=== PATIENT | female | born 1935 | race Caucasian/White ===

== ENCOUNTER 2019-05-15 15:54 | Observation (INO) ==
[2019-05-15] MEDS: 0.9 % Sodium Chloride 1,000 ML IVC SCH ×2 (16:39→18:00)
[2019-05-15 16:43] LABS: Bilirubin,Urine Negative (Negative); Blood,Urine Negative (Negative); Clarity,Urine Clear (Clear); Color,Urine Yellow (Yellow); Glucose,Urine (UA) >=1000 mg/dL (Normal); Ketones,Urine Negative (Negative); Leukocyte Esterase,Urine Negative (Negative); Nitrite,Urine Negative (Negative); Protein,Urine Negative (Neg-Trace); Specific Gravity,Urine 1.025 (1.010-1.025); Urobilinogen,Urine Normal (Normal)
[2019-05-15 16:56] LABS: Basophils # 0.1 K/mcL (0.0-0.2); Basophils % 0.5 %; Eosinophils # 0.2 K/mcL (0.0-0.6); Eosinophils % 2.5 %; Hematocrit 46.9 % (35.3-44.9); Hemoglobin 15.2 g/dL (11.5-15.4); Immature Granulocytes % 0.4 % (0-4); Lymphocytes # 1.7 K/mcL (0.6-4.6); Lymphocytes % 17.4 %; Mean Corpuscular HGB Conc 32.4 g/dL (31.6-35.5); Mean Corpuscular Hemoglobin 30.5 pg (28.0-33.3); Mean Corpuscular Volume 94.2 fL (83.0-100.0); Mean Platelet Volume 12.3 fL (9.4-12.4); Monocytes % 10.1 %; Neutrophils # 6.5 K/mcL (1.6-8.9); Platelet Count 244 K/mcL (140-400); Red Blood Count 4.98 M/mcL (3.82-4.97); Red Cell Distribution Width 12.2 % (11.5-14.5); Segmented Neutrophils % 69.1 %; White Blood Count 9.5 K/mcL (4.3-11.1)
[2019-05-15 17:00] LABS: VBG HCO3 23 mEq/L (21-27); VBG PCO2 42 mmHg (41-51); VBG PH 7.35 pH Units (7.32-7.42); VBG PO2 57 mmHg (25-50)
--- NOTE | 2019-05-15 17:05 | Emergency Department Note ---
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) Disposition: Admitted As Inpatient Condition: Fair Referrals: Irwin Cadet Jr, MD [Primary Care Provider] - Forms: ED Satisfaction Letter Time of Disposition: 18:24 General Adult HPI - General Chief complaint: ED Altered Mental Status Stated complaint: AMS, HI glucose Time Seen by Provider: 05/15/19 16:00 Source: patient Limitations: no limitations - History of Present Illness Pain Scale: 5 - Related Data Previous Rx's Medication Instructions Recorded Adolfo/Poly/HC *EAR* SUSP 2 drop RIGHT EAR QID 7 Days 10/31/16 [Cortisporin *EAR* SUSP] drops.susp Allergies Allergy/AdvReac Type Severity Reaction Status Date / Time azithromycin Allergy Rash Verified 10/31/16 14:19 Past Medical History - Past Medical History Medical history: Reports: arthritis, diabetes, hypertension Psychiatric history: Reports: no psych history - Social History Smoking Status: Never smoker Smokeless Tobacco Status: No Alcohol use: Reports: none Drug use: Reports: none Physical Exam - General Limitations: no limitations General appearance: alert Course Vital Signs Temperature 98.0 F 05/15/19 15:55 Pulse Rate 77 05/15/19 15:55 Respiratory Rate 16 05/15/19 15:55 Blood Pressure 140/74 05/15/19 15:55 O2 Sat by Pulse Oximetry 95 05/15/19 15:55 Temperature 98.0 F 05/15/19 16:12 Pulse Rate 76 05/15/19 17:20 Respiratory Rate 14 05/15/19 17:20 Blood Pressure 142/78 05/15/19 17:20 O2 Sat by Pulse Oximetry 94 05/15/19 17:20 Oxygen Delivery Oxygen Delivery Room Air Medical Decision Making - Lab Data Result diagrams: 05/15/19 16:39 05/15/19 16:39 Lab Results 05/15/19 05/15/19 05/15/19 Range/Units 16:33 16:39 16:39 WBC 9.5 (4.3-11.1) K/mcL RBC 4.98 H (3.82-4.97) M/mcL Hgb 15.2 (11.5-15.4) g/dL Hct 46.9 H (35.3-44.9) % MCV 94.2 (83.0-100.0) fL MCH 30.5 (28.0-33.3) pg MCHC 32.4 (31.6-35.5) g/dL RDW 12.2 (11.5-14.5) % Plt Count 244 (140-400) K/mcL MPV 12.3 (9.4-12.4) fL Immature Gran % 0.4 (0-4) % Seg Neutrophils % 69.1 % Lymphocytes % 17.4 % Monocytes % 10.1 % Eosinophils % 2.5 % Basophils % 0.5 % Neutrophils # 6.5 (1.6-8.9) K/mcL Lymphocytes # 1.7 (0.6-4.6) K/mcL Monocytes # 1.0 (0.0-1.3) K/mcL Eosinophils # 0.2 (0.0-0.6) K/mcL Basophils # 0.1 (0.0-0.2) K/mcL VBG pH (7.32-7.42) pH Units VBG pCO2 (41-51) mmHg VBG pO2 (25-50) mmHg VBG HCO3 (21-27) mEq/L Sodium 119 L* (136-145) mEq/L Potassium 4.8 (3.5-5.1) mEq/L Chloride 87 L (98-107) mEq/L Carbon Dioxide 24 (23-29) mEq/L BUN 38 H (8-23) mg/dL Creatinine 1.85 H (0.60-1.20) mg/dL Est GFR ( Amer) 31 L (> 60) Est GFR (Non-Af Amer) 26 L (> 60) BUN/Creatinine Ratio 21 (6-26) Glucose 984 H* (70-105) mg/dL Calculated Osmolality 306 H (280-300) Lactic Acid (0.5-2.2) mmol/L Calcium 10.3 (8.6-10.3) mg/dL Phosphorus 3.4 (2.7-4.5) mg/dL Magnesium 2.0 (1.6-2.6) mg/dL Beta-Hydroxybutyric Acd (0.02-0.27) mmol/L Urine Color Yellow (Yellow) Urine Clarity Clear (Clear) Urine pH 6.0 (5.0-8.0) pH Units Ur Specific [place] 1.025 (1.010-1.025) Urine Protein Negative (Neg-Trace) mg/dL Urine Glucose (UA) >=1000 H (Normal) mg/dL Urine Ketones Negative (Negative) mg/dL Urine Blood Negative (Negative) Urine Nitrite Negative (Negative) Urine Bilirubin Negative (Negative) Urine Urobilinogen Normal (Normal) mg/dL Ur Leukocyte Esterase Negative (Negative) Ur Culture Indicated? NO (NO) 05/15/19 05/15/19 05/15/19 Range/Units 16:39 16:39 16:56 WBC (4.3-11.1) K/mcL RBC (3.82-4.97) M/mcL Hgb (11.5-15.4) g/dL Hct (35.3-44.9) % MCV (83.0-100.0) fL MCH (28.0-33.3) pg MCHC (31.6-35.5) g/dL RDW (11.5-14.5) % Plt Count (140-400) K/mcL MPV (9.4-12.4) fL Immature Gran % (0-4) % Seg Neutrophils % % Lymphocytes % % Monocytes % % Eosinophils % % Basophils % % Neutrophils # (1.6-8.9) K/mcL Lymphocytes # (0.6-4.6) K/mcL Monocytes # (0.0-1.3) K/mcL Eosinophils # (0.0-0.6) K/mcL Basophils # (0.0-0.2) K/mcL VBG pH 7.35 (7.32-7.42) pH Units VBG pCO2 42 (41-51) mmHg VBG pO2 57 H (25-50) mmHg VBG HCO3 23 (21-27) mEq/L Sodium (136-145) mEq/L Potassium (3.5-5.1) mEq/L Chloride (98-107) mEq/L Carbon Dioxide (23-29) mEq/L BUN (8-23) mg/dL Creatinine (0.60-1.20) mg/dL Est GFR ( Amer) (> 60) Est GFR (Non-Af Amer) (> 60) BUN/Creatinine Ratio (6-26) Glucose (70-105) mg/dL Calculated Osmolality (280-300) Lactic Acid 2.5 H (0.5-2.2) mmol/L Calcium (8.6-10.3) mg/dL Phosphorus (2.7-4.5) mg/dL Magnesium (1.6-2.6) mg/dL Beta-Hydroxybutyric Acd 0.23 (0.02-0.27) mmol/L Urine Color (Yellow) Urine Clarity (Clear) Urine pH (5.0-8.0) pH Units Ur Specific [place] (1.010-1.025) Urine Protein (Neg-Trace) mg/dL Urine Glucose (UA) (Normal) mg/dL Urine Ketones (Negative) mg/dL Urine Blood (Negative) Urine Nitrite (Negative) Urine Bilirubin (Negative) Urine Urobilinogen (Normal) mg/dL Ur Leukocyte Esterase (Negative) Ur Culture Indicated? (NO) Critical Care Time Critical Care Time: Yes Total Critical Care Time: 45 Attestation: Critical care performed: Time is exclusive of separately billable procedures. Time includes: direct patient care, patient reassessment, coordination of patient care, interpretation of data (laboratory data, radiology data, and respiratory data), review of patient's medical records, medical consultation and documentation of patient care. Procedures included in critical care time: Procedures excluded from critical care time: Attestation Statement - Attestation Attestation: I, Andrzej Bhandari DO, examined this patient [id number] and my medical decision-making was reviewed with Dr. Teresa Alarcon, Resident Physician. I agree with the documented findings, disposition and treatment plan as described except to the extent set forth below. I personally supervised and was present for the berg/critical portions of the procedures completed by the resident documented below. Please see my progress notes for details. 84-year-old female presents emergency room for evaluation of generalized malaise, increased thirst, increased urination, elevated glucose. 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 She denies any recent falls trauma or injury. She has not been ill. She has increased her fluid intake secondary to thirst but has not had any other acute intake and her food. She does not eat much at home. She also has been drinking a lot of juice. No other acute symptoms or issues. No recent fevers or chills. Head is atraumatic. Pupils are equal and reactive. Extracted muscles are intact. Oropharynx is patent. Trachea is midline. Lungs are clear. Heart is regular. Abdomen is soft. She has no point tenderness guarding rigidity or peritoneal symptoms. She was all 4 extremities without any difficulty. Family is comfortable this plan. EKG is reviewed by myself and documented resident physician's note. See detailed documentation the physical exam, medical intervention, medical decision-making and disposition in the resident physician's documentation. No critical care provider the patient's treatment course at this time. Workup for diabetic ketoacidosis as well as laterally derangements and CT imaging of the head and chest will be completed this time. Patient is otherwise stable. No immediate intervention is required at this time. 1800 Patient has what appears to be hyperosmolar hyperglycemic syndrome at this time. Fluid resuscitation will be started. She also is having symptomatic pseudohyponatremia secondary to the elevated glucose of greater than 900. Her corrected sodium at this time is greater than 1:30. Patient will be monitored closely as admission process is completed. Approximately 45 minutes of critical care pad the patient's treatment course at this time. [address] Chang reviewed the case at length. No other recommendations or concerns were noted this time. Patient will be admitted to the hospital for continuation of care and management. 45 minutes of critical care provider the patient's treatment course secondary to multidisciplinary intervention and management.
--- NOTE | 2019-05-15 17:30 | Emergency Department Note ---
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 Patient reports that normally she does not feel like "an old person "but she says she feels like that today. Patient was out in the heat on Monday for a graduation alliance party, and since that time she states that she has felt weak all over. Daughter at bedside states that she seems more confused and it seems like it is hard for her to get her words out. Patient is alert and oriented to person place and time as well as President. She denies any recent falls or trauma. 3 weeks ago she was taken off her full dose metformin, placed on a half dose, and started on Januvia. - Related Data Home Medications Medication Instructions Recorded Confirmed Unable To Obtain [Unable to Obtain] 05/15/19 05/15/19 Allergies Allergy/AdvReac Type Severity Reaction Status Date / Time azithromycin Allergy Rash Verified 10/31/16 14:19 Review of Systems: In addition to that documented in the HPI above, the additional ROS was obtained: Constitutional: Denies fevers or chills Eyes: Denies vision changes ENMT: Denies sore throat CV: Denies chest pain Resp: Reports SOB GI: Denies vomiting or diarrhea : Denies painful urination Reports polyuria, polydipsia MSK: Denies recent trauma or falls Skin: Denies new rashes Neuro: Denies new numbness or tingling Reports new weakness Endocrine: Denies unexpected weight loss Heme: Denies bleeding disorders Past Medical History - Past Medical History Attestation: Yes The following information was validated with the patient. Medical history: Reports: arthritis, diabetes, hypertension Psychiatric history: Reports: no psych history - Social History Smoking Status: Never smoker Smokeless Tobacco Status: No Alcohol use: Reports: none Drug use: Reports: none Physical Exam General: A&O x 3 - person, place, time. No acute distress. Well developed, well nourished. Head: atraumatic, normocephalic. ENT: No conjunctival injection, no scleral icterus. PERRLA. EOMI. Oropharynx n on- erythematous. mucous membranes moist. Neuro: No focal deficits, no speech deficit, no facial droop, mentating well. BUE/BLE Str 5/5. Rabia UE/LE sensation intact. CN II-XII intact. Cerebellar test ing with [id number] and [id number] intact. Pulm: Lungs CTAB A/P. No wheezes, rales, ronchi. Cardio: RRR no m/r/g. Chest not tender to palpation. Abd: Soft, non-distended. Normoactive bowel sounds. Non-tender to palpation. No guarding. Non rigid. Extremities: Radial pulses 2+ rabia, dorsalis pedis/posterior tibialis 2+ rabia. No LE edema. No cyanosis, clubbing. Skin: warm, dry, intact. No rashes. Psych: Appropriate mood and affect. Answers questions appropriately. Cooperative with exam. - General Limitations: no limitations General appearance: alert Course Vital Signs Temperature 98.0 F 05/15/19 15:55 Pulse Rate 77 05/15/19 15:55 Respiratory Rate 16 05/15/19 15:55 Blood Pressure 140/74 05/15/19 15:55 O2 Sat by Pulse Oximetry 95 05/15/19 15:55 Temperature 98.0 F 05/15/19 16:12 Pulse Rate 91 05/15/19 20:03 Respiratory Rate 16 05/15/19 20:03 Blood Pressure 128/68 05/15/19 20:03 O2 Sat by Pulse Oximetry 96 05/15/19 20:03 Oxygen Delivery Oxygen Delivery Room Air Altered Mental Status - MDM Narrative Medical decision making narrative: 84-year-old female that presents with concerns for weakness and elevated blood sugar. We will obtain basic laboratory evaluation to include CBC, BMP, LFTs, beta hydroxybutyrate, UA, chest x-ray, EKG. Initial glucose in her BMP was 984, corrected sodium was 133, initial potassium was 4.8. Patient will be started on fluids, 2 L have been ordered while she is in the emergency department, given patient's elevated glucose and potassium of 4.8 she will be started on an insulin drip. Patient will need to be admitted for further workup and stabilization. Patient was admitted to the hospitalist Dr. Chang who agreed to accept the patient to his service. Results of the workup including any imaging and/or labwork was shared with the patient at bedside. Patient was given an opportunity to ask questions at bedside and all of their concerns were addressed. Patient verbalized understanding and agreement with plan of care. Pt remained stable while in the department. - Medical Records Medical records reviewed: Yes I reviewed the patient's medical records. - Lab Data Lab results reviewed: Yes I reviewed the patient's lab results. Result diagrams: 05/15/19 16:39 05/15/19 19:48 Lab Results 05/15/19 05/15/19 05/15/19 Range/Units 16:10 16:10 16:33 WBC (4.3-11.1) K/mcL RBC (3.82-4.97) M/mcL Hgb (11.5-15.4) g/dL Hct (35.3-44.9) % MCV (83.0-100.0) fL MCH (28.0-33.3) pg MCHC (31.6-35.5) g/dL RDW (11.5-14.5) % Plt Count (140-400) K/mcL MPV (9.4-12.4) fL Immature Gran % (0-4) % Seg Neutrophils % % Lymphocytes % % Monocytes % % Eosinophils % % Basophils % % Neutrophils # (1.6-8.9) K/mcL Lymphocytes # (0.6-4.6) K/mcL Monocytes # (0.0-1.3) K/mcL Eosinophils # (0.0-0.6) K/mcL Basophils # (0.0-0.2) K/mcL VBG pH (7.32-7.42) pH Units VBG pCO2 (41-51) mmHg VBG pO2 (25-50) mmHg VBG HCO3 (21-27) mEq/L Sodium (136-145) mEq/L Potassium (3.5-5.1) mEq/L Chloride (98-107) mEq/L Carbon Dioxide (23-29) mEq/L BUN (8-23) mg/dL Creatinine (0.60-1.20) mg/dL Est GFR ( Amer) (> 60) Est GFR (Non-Af Amer) (> 60) BUN/Creatinine Ratio (6-26) Glucose (70-105) mg/dL POC Glucose > 600 H* > 600 H* (70-99) mg/dL Calculated Osmolality (280-300) Lactic Acid (0.5-2.2) mmol/L Calcium (8.6-10.3) mg/dL Phosphorus (2.7-4.5) mg/dL Magnesium (1.6-2.6) mg/dL Beta-Hydroxybutyric Acd (0.02-0.27) mmol/L Urine Color Yellow (Yellow) Urine Clarity Clear (Clear) Urine pH 6.0 (5.0-8.0) pH Units Ur Specific [place] 1.025 (1.010-1.025) Urine Protein Negative (Neg-Trace) mg/dL Urine Glucose (UA) >=1000 H (Normal) mg/dL Urine Ketones Negative (Negative) mg/dL Urine Blood Negative (Negative) Urine Nitrite Negative (Negative) Urine Bilirubin Negative (Negative) Urine Urobilinogen Normal (Normal) mg/dL Ur Leukocyte Esterase Negative (Negative) Ur Culture Indicated? NO (NO) 05/15/19 05/15/19 05/15/19 Range/Units 16:39 16:39 16:39 WBC 9.5 (4.3-11.1) K/mcL RBC 4.98 H (3.82-4.97) M/mcL Hgb 15.2 (11.5-15.4) g/dL Hct 46.9 H (35.3-44.9) % MCV 94.2 (83.0-100.0) fL MCH 30.5 (28.0-33.3) pg MCHC 32.4 (31.6-35.5) g/dL RDW 12.2 (11.5-14.5) % Plt Count 244 (140-400) K/mcL MPV 12.3 (9.4-12.4) fL Immature Gran % 0.4 (0-4) % Seg Neutrophils % 69.1 % Lymphocytes % 17.4 % Monocytes % 10.1 % Eosinophils % 2.5 % Basophils % 0.5 % Neutrophils # 6.5 (1.6-8.9) K/mcL Lymphocytes # 1.7 (0.6-4.6) K/mcL Monocytes # 1.0 (0.0-1.3) K/mcL Eosinophils # 0.2 (0.0-0.6) K/mcL Basophils # 0.1 (0.0-0.2) K/mcL VBG pH (7.32-7.42) pH Units VBG pCO2 (41-51) mmHg VBG pO2 (25-50) mmHg VBG HCO3 (21-27) mEq/L Sodium 119 L* (136-145) mEq/L Potassium 4.8 (3.5-5.1) mEq/L Chloride 87 L (98-107) mEq/L Carbon Dioxide 24 (23-29) mEq/L BUN 38 H (8-23) mg/dL Creatinine 1.85 H (0.60-1.20) mg/dL Est GFR ( Amer) 31 L (> 60) Est GFR (Non-Af Amer) 26 L (> 60) BUN/Creatinine Ratio 21 (6-26) Glucose 984 H* (70-105) mg/dL POC Glucose (70-99) mg/dL Calculated Osmolality 306 H (280-300) Lactic Acid (0.5-2.2) mmol/L Calcium 10.3 (8.6-10.3) mg/dL Phosphorus 3.4 (2.7-4.5) mg/dL Magnesium 2.0 (1.6-2.6) mg/dL Beta-Hydroxybutyric Acd 0.23 (0.02-0.27) mmol/L Urine Color (Yellow) Urine Clarity (Clear) Urine pH (5.0-8.0) pH Units Ur Specific [place] (1.010-1.025) Urine Protein (Neg-Trace) mg/dL Urine Glucose (UA) (Normal) mg/dL Urine Ketones (Negative) mg/dL Urine Blood (Negative) Urine Nitrite (Negative) Urine Bilirubin (Negative) Urine Urobilinogen (Normal) mg/dL Ur Leukocyte Esterase (Negative) Ur Culture Indicated? (NO) 05/15/19 05/15/19 05/15/19 Range/Units 16:39 16:56 19:30 WBC (4.3-11.1) K/mcL RBC (3.82-4.97) M/mcL Hgb (11.5-15.4) g/dL Hct (35.3-44.9) % MCV (83.0-100.0) fL MCH (28.0-33.3) pg MCHC (31.6-35.5) g/dL RDW (11.5-14.5) % Plt Count (140-400) K/mcL MPV (9.4-12.4) fL Immature Gran % (0-4) % Seg Neutrophils % % Lymphocytes % % Monocytes % % Eosinophils % % Basophils % % Neutrophils # (1.6-8.9) K/mcL Lymphocytes # (0.6-4.6) K/mcL Monocytes # (0.0-1.3) K/mcL Eosinophils # (0.0-0.6) K/mcL Basophils # (0.0-0.2) K/mcL VBG pH 7.35 (7.32-7.42) pH Units VBG pCO2 42 (41-51) mmHg VBG pO2 57 H (25-50) mmHg VBG HCO3 23 (21-27) mEq/L Sodium (136-145) mEq/L Potassium (3.5-5.1) mEq/L Chloride (98-107) mEq/L Carbon Dioxide (23-29) mEq/L BUN (8-23) mg/dL Creatinine (0.60-1.20) mg/dL Est GFR ( Amer) (> 60) Est GFR (Non-Af Amer) (> 60) BUN/Creatinine Ratio (6-26) Glucose (70-105) mg/dL POC Glucose > 600 H* (70-99) mg/dL Calculated Osmolality (280-300) Lactic Acid 2.5 H (0.5-2.2) mmol/L Calcium (8.6-10.3) mg/dL Phosphorus (2.7-4.5) mg/dL Magnesium (1.6-2.6) mg/dL Beta-Hydroxybutyric Acd (0.02-0.27) mmol/L Urine Color (Yellow) Urine Clarity (Clear) Urine pH (5.0-8.0) pH Units Ur Specific [place] (1.010-1.025) Urine Protein (Neg-Trace) mg/dL Urine Glucose (UA) (Normal) mg/dL Urine Ketones (Negative) mg/dL Urine Blood (Negative) Urine Nitrite (Negative) Urine Bilirubin (Negative) Urine Urobilinogen (Normal) mg/dL Ur Leukocyte Esterase (Negative) Ur Culture Indicated? (NO) 05/15/19 05/15/19 05/15/19 Range/Units 19:48 20:09 20:10 WBC (4.3-11.1) K/mcL RBC (3.82-4.97) M/mcL Hgb (11.5-15.4) g/dL Hct (35.3-44.9) % MCV (83.0-100.0) fL MCH (28.0-33.3) pg MCHC (31.6-35.5) g/dL RDW (11.5-14.5) % Plt Count (140-400) K/mcL MPV (9.4-12.4) fL Immature Gran % (0-4) % Seg Neutrophils % % Lymphocytes % % Monocytes % % Eosinophils % % Basophils % % Neutrophils # (1.6-8.9) K/mcL Lymphocytes # (0.6-4.6) K/mcL Monocytes # (0.0-1.3) K/mcL Eosinophils # (0.0-0.6) K/mcL Basophils # (0.0-0.2) K/mcL VBG pH (7.32-7.42) pH Units VBG pCO2 (41-51) mmHg VBG pO2 (25-50) mmHg VBG HCO3 (21-27) mEq/L Sodium 127 L (136-145) mEq/L Potassium 3.4 L D (3.5-5.1) mEq/L Chloride 95 L (98-107) mEq/L Carbon Dioxide 22 L (23-29) mEq/L BUN 33 H (8-23) mg/dL Creatinine 1.66 H (0.60-1.20) mg/dL Est GFR ( Amer) 36 L (> 60) Est GFR (Non-Af Amer) 29 L (> 60) BUN/Creatinine Ratio 20 (6-26) Glucose 655 H* (70-105) mg/dL POC Glucose 534 H* 524 H* (70-99) mg/dL Calculated Osmolality 302 H (280-300) Lactic Acid (0.5-2.2) mmol/L Calcium 9.7 (8.6-10.3) mg/dL Phosphorus (2.7-4.5) mg/dL Magnesium (1.6-2.6) mg/dL Beta-Hydroxybutyric Acd (0.02-0.27) mmol/L Urine Color (Yellow) Urine Clarity (Clear) Urine pH (5.0-8.0) pH Units Ur Specific [place] (1.010-1.025) Urine Protein (Neg-Trace) mg/dL Urine Glucose (UA) (Normal) mg/dL Urine Ketones (Negative) mg/dL Urine Blood (Negative) Urine Nitrite (Negative) Urine Bilirubin (Negative) Urine Urobilinogen (Normal) mg/dL Ur Leukocyte Esterase (Negative) Ur Culture Indicated? (NO) - Radiology Data Radiology results reviewed: Yes I reviewed the patient's radiology results. Chest X-Ray 05/15/19 16:46 IMPRESSION: No evidence for acute cardiopulmonary process. D/ / Romulo Stewart MD / Romulo Stewart MD Interpreting Provider: Romulo Stewart MD Head CT 05/15/19 16:46 IMPRESSION: No acute intracranial abnormality. Diffuse atrophic changes with findings suggesting chronic microvascular ischemia D/ / Clark Thompson MD / Clark Thompson MD Interpreting Provider: Clark Thompson MD - EKG Data EKG attestation: Yes I reviewed and interpreted this EKG. EKG results narrative: Heart rate 74, rhythm sinus, axis left at -54. ME 165, QRS 147 and prolonged, QTC 488. No ST segment elevations or depressions noted right bundle-branch noted. When compared with previous study on 04/03/2000 the right bundle-branch block is new. TPA Checklist - LKW: 3-4.5 hrs Add. Warnings/Precautions Patient/family understanding: The patient/family members have been counseled and understood the risk, benefit, and alternatives of treatment. Attestation Statement - Attestation Attestation: I, Andrzej Bhandari DO, examined this patient [id number] and my medical decision-making was reviewed with Dr. Teresa Alarcon, Resident Physician. I agree with the documented findings, disposition and treatment plan as described except to the extent set forth below. I personally supervised and was present for the berg/critical portions of the procedures completed by the resident documented below. Please see my progress notes for details.
[2019-05-15 17:38] LABS: Calcium 10.3 mg/dL (8.6-10.3); Phosphorous 3.4 mg/dL (2.7-4.5); Potassium 4.8 mEq/L (3.5-5.1)
[2019-05-15] MEDS ORDERED: *HR* Dextrose 50 % in Water (Syg) 50 ML SYRINGE IVP PRN ×2 (17:40→21:07)
[2019-05-15] MEDS ORDERED: Insulin Human Regular 100 UNIT in 0.9 % Sodium Chloride 100 ML IVC SCH (17:45)
[2019-05-15] MEDS ORDERED: 0.9 % Sodium Chloride 1,000 ML IVC SCH (17:45)
--- NOTE | 2019-05-15 19:54 | Internal Med History&Physical ---
<Belia Harris M - Last Filed: 05/16/19 00:19> Date of Encounter: 05/16/19 Time of Encounter: 19:53 Internal Medicine - H&P: HPI Admitted From: Emergency Dept History of present illness: Ms. El is a 84 year old female with history of hypertension, diabetes, and solitary kidney who presented to the emergency department with complaints of weakness, lightheadedness, polydipsia and polyuria and fatigue over the last 5 days. The patient states she has been sleeping more than usual, not eating significantly. She had a family reunion over the weekend and overexerted herself and has also been drinking a significant amount of orange juice. She states she has had increased thirst, increased urinary output, confusion, and generalized weakness but denies any fever, chills, chest pain, shortness of breath, cough, nausea, vomiting, diarrhea, abdominal pain, dysuria or hematuria. Patients PCP changed her metformin from 500mg BID to once daily and added Januvia 100mg on 04/10/19. Patient was evaluated by her primary care physician today due to the symptoms, found to have hyperglycemia and glucose urea and was sent to the emergency department for evaluation. In the emergency department the patient was found to have no significant leukocytosis or anemia. Initial vital signs show no tachycardia, no tachypnea, BP stable, afebrile, and 95% pulse ox on room air. VBG shows pH 7.35, PCO2 42 cold PO2 57, HCO3 23. Initial BMP shows sodium 119, potassium 4.8, BUN 38, creatinine 1.85 with glucose 984. Lactate elevated at 2.5. Urinalysis shows greater than 1000 glucose without ketones or evidence of infection. Beta hydroxybutyrate 0.23. The patient was initiated treatment for age at bedtime with sterile saline bolus. Initiation of normal saline fluids at maintenance along with insulin drip. Repeat BMP shows sodium 127, potassium 3.4, BUN 33, creatinine 1.66. Chest XR shows no infection. Head CT shows no acute abnormalities. Glucose 655. Patient was admitted for further monitoring. She states she is DNR CCA DNI. Past Med Surg Social Fam HX - Past Medical History Attestation: Yes The following information was validated with the patient. Medical history: arthritis, diabetes, hypertension Psychiatric history: no psych history - Past Surgical History Surgical History: appendectomy, hysterectomy Additional surgical history: left kidney removal, tonsillectomy - Social History Smoking Status: Never smoker Smokeless Tobacco Status: No Alcohol use: none Drug use: none Current living situation: Home - Independent Internal Medicine - H&P: Meds Unable To Obtain [Unable to Obtain] 05/15/19 [History] Allergy/AdvReac Type Severity Reaction Status Date / Time azithromycin Allergy Rash Verified 10/31/16 14:19 All Systems PM: A 10-system review of systems was performed and is negative for pertinent findings except as documented above in the HPI. - Constitutional Constitutional: malaise, weakness, no chills, no fever(s) - EENT Eyes: no blurry vision, no change in vision - Cardiovascular Cardiovascular ROS IM: no chest pain, no dyspnea, no edema - Respiratory Respiratory: no cough, no dyspnea, no wheezing - Gastrointestinal Gastrointestinal: no abdominal pain, no diarrhea, no nausea, no vomiting - Genitourinary Genitourinary: urinary frequency, no dysuria, no hematuria - Musculoskeletal Musculoskeletal ROS IM: no arthralgias, no back pain - Integumentary Integumentary IM: no erythema, no rash, no sores - Neurological Neurological ROS: confusion, no abnormal hearing, no dizziness, no headache(s) - Psychiatric Psychiatric: no anxiety, no confusion - Endocrine Endocrine IM: fatigue, polydipsia, polyuria - Hematologic/Lymphatic Hematologic/Lymphatic: no easy bleeding, no easy bruising - Constitutional Vitals: Temp Pulse Resp BP Pulse Ox 98.0 F 76 14 142/78 94 05/15/19 16:12 05/15/19 17:20 05/15/19 17:20 05/15/19 17:20 05/15/19 17:20 Exam: General: Conversant. No apparent distress. Follow commands. Appears stated age. Hard of hearing. Neck: No JVD. Trachea midline. Neck supple. Eyes: PERRL. No scleral icterus. HENT: Normocephalic and atraumatic. Dry mucus membranes. Cardiovascular: Regular rate and rhythm. Normal S1 and S2. No murmurs appreciated. Normal capillary refill. Extremities well perfused with 2+ distal pulses bilaterally. No edema. Pulmonary: Normal and equal breath sounds bilaterally, anteriorly and posteriorly. No wheezes, rales, or rhonchi. Not in respiratory distress. Speaks in full sentences. Abdomen: Soft, nondistended, and tontender. No bruits or masses. No guarding. Neuro: Alert and oriented x3. No slurred speech. No focal deficits noted. Skin: No rashes noted on visualized skin. Musculoskeletal: No bony abnormalities visualized. Moves all extremities. Psych: Normal mood. Pleasant. Makes appropriate eye contact. Internal Med - H&P Results - Labs CBC & Chem 7: 05/15/19 16:39 05/15/19 19:48 Labs: Short CBC 05/15/19 Range/Units 16:39 WBC 9.5 (4.3-11.1) K/mcL Hgb 15.2 (11.5-15.4) g/dL Hct 46.9 H (35.3-44.9) % Plt Count 244 (140-400) K/mcL Neutrophils # 6.5 (1.6-8.9) K/mcL BMP 05/15/19 16:39 Sodium 119 L* Potassium 4.8 Chloride 87 L Carbon Dioxide 24 BUN 38 H Creatinine 1.85 H Glucose 984 H* Calcium 10.3 Urine 05/15/19 Range/Units 16:33 Urine Color Yellow (Yellow) Urine Clarity Clear (Clear) Urine pH 6.0 (5.0-8.0) pH Units Ur Specific [place] 1.025 (1.010-1.025) Urine Protein Negative (Neg-Trace) mg/dL Urine Glucose (UA) >=1000 H (Normal) mg/dL - ABG Interpretation ABG results: 05/15/19 16:56 VBG pH 7.35 VBG pCO2 42 VBG pO2 57 H VBG HCO3 23 - Impressions ITS Impressions Chest X-Ray 05/15/19 16:46 IMPRESSION: No evidence for acute cardiopulmonary process. D/ / Romulo Stewart MD / Romulo Stewart MD Interpreting Provider: Romulo Stewart MD Head CT 05/15/19 16:46 IMPRESSION: No acute intracranial abnormality. 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 Chest XR shows no infiltrate, UA shows no infection, lungs are clear, abdomen is soft and nontender. * Head CT shows no acute intracranial pathology to explain confusion * Patient given 1L NS bolus, initiated on NS maintenance * Repeat K 3.4, down from 4.8, now in insulin drip * Corrected sodium still <135 therefore will continue with NS and supplement with 20mEq KCl * Once sodium above 135 will likely transition to 1/2NS with KCl supplementation as needed * 40mEq KCl given orally * Will continue to monitor BMP q 4 hour, Glucose every hour * HHS protocol otherwise will continue (2) Dehydration Current Visit: Yes Status: Acute Assessment and plan: * Likely source of the patients acute hyperosmolar hyperglycemic state along with increased orange juice intake (3) Acute kidney injury Current Visit: Yes Status: Acute Assessment and plan: * Will continue to monitor closely especially given solitary kidney * BMP shows improvement of her kidney function with fluids, recheck BMP pending and will reassess urinary output in the morning (4) HTN (hypertension) Current Visit: Yes Status: Acute Assessment and plan: * Will continue home medications once verified Qualifiers: Hypertension type: essential hypertension Qualified Code(s): I10 - Essen tial (primary) hypertension (5) DVT prophylaxis Current Visit: Yes Status: Acute Assessment and plan: * EPCDs - Time Spent With Patient Total time spent is greater than 50% in coordination of care (as documented) at patient's floor/unit and/or counseling patient: <Leo De Souza Teena - Last Filed: 05/16/19 04:23> Date of Encounter: 05/15/19 Internal Medicine - H&P: HPI History of present illness: Ms. El is a 84 year old female All Systems PM: A 10-system review of systems was performed and is negative for pertinent findings except as documented above in the HPI. - Constitutional Vitals: Temp Pulse Resp BP Pulse Ox 98.1 F 70 17 133/70 96 05/16/19 04:04 05/16/19 04:04 05/16/19 04:04 05/16/19 04:04 05/16/19 04:04 Internal Med - H&P Results - Labs CBC & Chem 7: 05/16/19 03:45 05/16/19 00:09 Labs: Short CBC 05/15/19 05/16/19 Range/Units 16:39 03:45 WBC 9.5 8.9 (4.3-11.1) K/mcL Hgb 15.2 13.6 D (11.5-15.4) g/dL Hct 46.9 H 39.6 (35.3-44.9) % Plt Count 244 223 (140-400) K/mcL Neutrophils # 6.5 4.7 (1.6-8.9) K/mcL BMP 05/15/19 05/15/19 05/16/19 16:39 19:48 00:09 Sodium 119 L* 127 L 132 L Potassium 4.8 3.4 L D 3.9 Chloride 87 L 95 L 104 Carbon Dioxide 24 22 L 21 L BUN 38 H 33 H 27 H Creatinine 1.85 H 1.66 H 1.36 H Glucose 984 H* 655 H* 354 H Calcium 10.3 9.7 9.0 Urine 05/15/19 Range/Units 16:33 Urine Color Yellow (Yellow) Urine Clarity Clear (Clear) Urine pH 6.0 (5.0-8.0) pH Units Ur Specific [place] 1.025 (1.010-1.025) Urine Protein Negative (Neg-Trace) mg/dL Urine Glucose (UA) >=1000 H (Normal) mg/dL - ABG Interpretation ABG results: 05/15/19 16:56 VBG pH 7.35 VBG pCO2 42 VBG pO2 57 H VBG HCO3 23 - Impressions ITS Impressions Chest X-Ray 05/15/19 16:46 IMPRESSION: No evidence for acute cardiopulmonary process. D/ / Romulo Stewart MD / Romulo Stewart MD Interpreting Provider: Romulo Stewart MD Head CT 05/15/19 16:46 IMPRESSION: No acute intracranial abnormality. Diffuse atrophic changes with findings suggesting chronic microvascular ischemia D/ / Clark Thompson MD / Clark Thompson MD Interpreting Provider: Clark Thompson MD - Time Spent With Patient Total time spent is greater than 50% in coordination of care (as documented) at patient's floor/unit and/or counseling patient: - Attending Attestation I saw and evaluated the patient. I reviewed the residents note, performed my own physical examination and agree with findings and plan as documented in the residents note. Patient seen and examined on 05/15/19. Patient presented to the hospital with elevated blood sugars. Has a history of diabetes, never has had HHS or DKA before. Recent change of her medications from metformin to half dose metformin and Januvia. Over this past weekend attended a family reunion, possible dehydration associated with that. Patient also became very thirsty, admitting to drinking a lot of orange juice as well over the past few days. Currently feeling better. Will need to further adjust her home blood sugar medication. Continue to monitor.
[2019-05-15 20:42] LABS: Calcium 9.7 mg/dL (8.6-10.3); Potassium 3.4 mEq/L (3.5-5.1)
[2019-05-15] MEDS ORDERED: Naloxone 0.4 MG/ML INJ IVP PRN (23:10)
[2019-05-15] MEDS ORDERED: Ondansetron 4 MG/2 ML VIAL IVP PRN (23:10)
[2019-05-16 00:38] LABS: Potassium 3.9 mEq/L (3.5-5.1)
[2019-05-16] MEDS ORDERED: D5% in 0.45% NACL w KCl 20 MEQ/1,000 ML MLS IVC ONE (02:25)
[2019-05-16] MEDS ORDERED: Insulin Human Regular 100 UNIT in 0.9 % Sodium Chloride 100 ML IVC SCH (02:30)
[2019-05-16] MEDS: D5% in 0.45% NACL w KCl 20 MEQ/1,000 ML MLS IVC PRN ×2 (02:35→06:23)
[2019-05-16 04:03] LABS: Basophils # 0.1 K/mcL (0.0-0.2); Basophils % 0.7 %; Eosinophils # 0.6 K/mcL (0.0-0.6); Eosinophils % 6.7 %; Hematocrit 39.6 % (35.3-44.9); Hemoglobin 13.6 g/dL (11.5-15.4); Immature Granulocytes % 0.5 % (0-4); Lymphocytes # 2.5 K/mcL (0.6-4.6); Lymphocytes % 28.6 %; Mean Corpuscular HGB Conc 34.3 g/dL (31.6-35.5); Mean Corpuscular Hemoglobin 30.4 pg (28.0-33.3); Mean Corpuscular Volume 88.4 fL (83.0-100.0); Mean Platelet Volume 11.6 fL (9.4-12.4); Monocytes % 10.7 %; Neutrophils # 4.7 K/mcL (1.6-8.9); Platelet Count 223 K/mcL (140-400); Red Blood Count 4.48 M/mcL (3.82-4.97); Red Cell Distribution Width 11.9 % (11.5-14.5); Segmented Neutrophils % 52.8 %; White Blood Count 8.9 K/mcL (4.3-11.1)
[2019-05-16 04:21] LABS: Magnesium 1.6 mg/dL (1.6-2.6); Phosphorous 1.1 mg/dL (2.7-4.5); Potassium 3.6 mEq/L (3.5-5.1)
[2019-05-16] MEDS ORDERED: Insulin DETEMIR 100 UNIT/ML X5UNITS SQ ONE (07:53)
--- NOTE | 2019-05-16 11:23 | Internal Med Progress Note ---
Hospitalist Progress Note - Encounter Date of Encounter: 05/16/19 Time of Encounter: 09:00 - Subjective Interval History: Seen at bedside, currently having the breakfast, denies any pain, denies chest pain or SOB, is feeling overall fine. Endorses that she was drinking a lot f orange jiuce. Denies fever, chills, phlegm. - Exam Vitals: Temp Pulse Resp BP Pulse Ox 98.1 F 75 15 142/77 96 05/16/19 11:01 05/16/19 11:01 05/16/19 11:01 05/16/19 11:01 05/16/19 04:04 Exam: General: Alert and oriented, no physical distress, able to follow commands. HEENT: No thyromegaly, no lymphadenopathy, no discharge. Eyes: No discharge. Respiratory: Normal vesicular breathing, no added sounds, breathing equal in both sides. CVS: Normal heart sounds, no murmurs, no edema. Extremities: No peripheral edema, peripheral pulses intact. Lymph nodes: No lymphadenopathy Gastrointestinal: Soft, nontender abdomen, normal abdominal sounds. No distention noted. Genitourinary: No paravertebral tenderness. Neurological: Alert and oriented. No focal deficits. Cranial nerves II-XII intact. 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 Patient had been started on basal bolus regimen with insulin levemir7 units and LDSS -Discussed with the patient that he should be discharged on insulin. Recent hemoglobin A1c is elevated. Patient also had carb diet in the morning. We will keep the patient in here today, monitor blood glucose levels, likely discharge tomorrow with basal bolus insulin. Instructed the patient to have close follow-up with PCP. Discussed with the family and patient regarding the signs and symptoms of hypoglycemia. (2) Acute kidney injury Current Visit: Yes Status: Acute Assessment and Plan: Resolving. Creatinine at presentation was 1.66, improved to 1.21 today. Monitor BMP. Appreciate oral intake. (3) DVT prophylaxis Current Visit: Yes Status: Acute Assessment and Plan: Intermittnet pneumatic comprrssion devices (4) HTN (hypertension) Current Visit: Yes Status: Acute Assessment and Plan: -Resume homeds -BP stable (5) Hypophosphatemia Current Visit: Yes Status: Acute Assessment and Plan: -Low phosphorous -Repleted with IV phosphorous - Time Spent with Patient Total time spent is greater than 50% in coordination of care (as documented) at patient's floor/unit and/or counseling patient: Internal Medicine: Result - Labs CBC & Chem 7: 05/16/19 03:45 05/16/19 03:45 Labs: Short CBC 05/15/19 05/16/19 Range/Units 16:39 03:45 WBC 9.5 8.9 (4.3-11.1) K/mcL Hgb 15.2 13.6 D (11.5-15.4) g/dL Hct 46.9 H 39.6 (35.3-44.9) % Plt Count 244 223 (140-400) K/mcL Neutrophils # 6.5 4.7 (1.6-8.9) K/mcL BMP 05/15/19 05/15/19 05/16/19 16:39 19:48 00:09 Sodium 119 L* 127 L 132 L Potassium 4.8 3.4 L D 3.9 Chloride 87 L 95 L 104 Carbon Dioxide 24 22 L 21 L BUN 38 H 33 H 27 H Creatinine 1.85 H 1.66 H 1.36 H Glucose 984 H* 655 H* 354 H Calcium 10.3 9.7 9.0 05/16/19 03:45 Sodium 135 L Potassium 3.6 Chloride 108 H Carbon Dioxide 21 L BUN 22 Creatinine 1.21 H Glucose 230 H Calcium 9.0 Cardiac Enzymes 05/16/19 Range/Units 04:20 Troponin I < 0.03 (< 0.04) ng/mL Urine 05/15/19 Range/Units 16:33 Urine Color Yellow (Yellow) Urine Clarity Clear (Clear) Urine pH 6.0 (5.0-8.0) pH Units Ur Specific [place] 1.025 (1.010-1.025) Urine Protein Negative (Neg-Trace) mg/dL Urine Glucose (UA) >=1000 H (Normal) mg/dL - Impressions Impressions Chest X-Ray 05/15/19 16:46 IMPRESSION: No evidence for acute cardiopulmonary process. D/ / Romulo Stewart MD / Romulo Stewart MD Interpreting Provider: Romulo Stewart MD Head CT 05/15/19 16:46 IMPRESSION: No acute intracranial abnormality. Diffuse atrophic changes with findings suggesting chronic microvascular ischemia D/ / Clark Thompson MD / Clark Thompson MD Interpreting Provider: Clark Thompson MD Consult Discharge Plan - Plan Referrals: Juan Joseph [Partnered Physician] - 05/20/19 1:45 pm __ (4) HTN (hypertension) Qualifiers: Hypertension type: essential hypertension Qualified Code(s): I10 - Essential (primary) hypertension
[2019-05-16] MEDS ORDERED: Insulin LISPRO 300 UNITS/3 ML VIAL SQ SCH ×3 (11:30→21:00)
[2019-05-16] MEDS: amLODIPine 5 MG TABLET PO SCH (12:22)
[2019-05-16] MEDS: Insulin LISPRO 300 UNITS/3 ML VIAL SQ SCH ×2 (12:28→17:02)
--- NOTE | 2019-05-16 13:41 | Electrocardiograph Report ---
[facility] Test Date: 2019-05-15 Pat Name: Lis El Department: [id number] Room: 2N09 Gender: F Shirt Operator: : [id number] Requested By: Belia Harris Order Number: [id number] Reading MD: Irwin Cadet Measurements Intervals [place] Rate: 74 P: 63 TN: 165 QRS: -54 QRSD: 147 T: 60 QT: 439 QTc: 488 Interpretive Statements Sinus rhythm RBBB and LAFB Electronically Signed On 05-16-2019 13:39:56 EDT by Irwin Cadet
[2019-05-16] MEDS: 0.9 % Sodium Chloride w KCl 20 MEQ/1,000 ML MLS IVC SCH ×3 (18:30→18:32)
[2019-05-17 04:35] LABS: Basophils % 0.5 %; Eosinophils # 0.5 K/mcL (0.0-0.6); Eosinophils % 5.7 %; Hematocrit 41.3 % (35.3-44.9); Hemoglobin 13.7 g/dL (11.5-15.4); Immature Granulocytes % 0.5 % (0-4); Lymphocytes # 2.4 K/mcL (0.6-4.6); Lymphocytes % 30.4 %; Mean Corpuscular HGB Conc 33.2 g/dL (31.6-35.5); Mean Corpuscular Volume 90.4 fL (83.0-100.0); Mean Platelet Volume 11.9 fL (9.4-12.4); Monocytes # 0.8 K/mcL (0.0-1.3); Monocytes % 10.1 %; Neutrophils # 4.2 K/mcL (1.6-8.9); Platelet Count 212 K/mcL (140-400); Red Blood Count 4.57 M/mcL (3.82-4.97); Red Cell Distribution Width 12.5 % (11.5-14.5); Segmented Neutrophils % 52.8 %
[2019-05-17 04:49] LABS: Calcium 9.1 mg/dL (8.6-10.3); Magnesium 1.6 mg/dL (1.6-2.6); Phosphorous 2.7 mg/dL (2.7-4.5); Potassium 4.1 mEq/L (3.5-5.1)
[2019-05-17] MEDS: Insulin LISPRO 300 UNITS/3 ML VIAL SQ SCH ×2 (08:46→11:44)
[2019-05-17] MEDS: amLODIPine 5 MG TABLET PO SCH (08:46)
[2019-05-17] MEDS ORDERED: Insulin NPH 100 UNIT/ML (x5UNIT) SQ ONE (08:55)
[2019-05-17 11:12] VITALS: BP 98/64
--- NOTE | 2019-05-17 13:00 | Discharge Summary ---
- NOTES TO OUTPATIENT PROVIDER Notes to Outpatient Provider: HAs been started on insulin as presented with HHS. Please adjust dose as required. I am continuing metformin but stopping other anti diabetics. 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 El is a 84 year old female with the past medical history significant for diabetes mellitus type 2, hypertension, presented to the hospital because of weakness. Patient was diagnosed with at at bedtime, started on insulin drip and admitted for further management. Her blood glucose levels normalized with insulin drip. He was transitioned to subcutaneous insulin. Her blood glucose levels remain 200-300 while she was in the hospital. Patient is being discharged today on subcutaneous insulin with insulin Lantus 10 units at bedtime, insulin lispro 4 units 3 times a day with meals. Arrangements made for the patient insulin. She will be getting the teaching from the nurse before she goes home. We will also consult home health care. Regarding her previous medications, continue metformin, stop other medications. Discussed with the patient to follow-up with the PCP on Monday. She is being discharged in stable condition. Discharge discussed with: patient - Time Spent with Patient Total time spent providing and/or coordinating discharge services: 35 minutes - Discharge Medications Prescriptions: New Insulin LISPRO [Humalog Kwikpen U-100] 4 unit SQ TIDWM #10 mls Insulin Glargine,Hum.rec.anlog [Lantus Solostar] 10 unit SQ HS #30 insuln.pen Pen Needle, Diabetic [Insulin Pen Needle] 1 each MC QID #120 dis.needle metFORMIN [Glucophage] 500 mg PO DAILY #30 tablet Continued Oxybutynin Chloride 5 mg PO BID Torsemide 5 mg PO QDPC Atenolol [Tenormin] 50 mg PO DAILY Amlodipine Besylate 10 mg PO QDPC Discontinued Glipizide/Metformin HCl [Glipizide-Metformin 5-500 mg] 1 tab PO BIDWM SitaGLIPtin [Januvia] 100 mg PO DAILY Home Medications: Amlodipine Besylate 10 mg PO QDPC 05/16/19 [History] Atenolol [Tenormin] 50 mg PO DAILY 05/16/19 [History] Oxybutynin Chloride 5 mg PO BID 05/16/19 [History] Torsemide 5 mg PO QDPC 05/16/19 [History] Insulin Glargine,Hum.rec.anlog [Lantus Solostar] 10 unit SQ HS #30 insuln.pen 05/17/19 [Rx] Insulin LISPRO [Humalog Kwikpen U-100] 4 unit SQ TIDWM #10 mls 05/17/19 [Rx] Pen Needle, Diabetic [Insulin Pen Needle] 1 each QID #120 dis.needle 05/17/19 [Rx] metFORMIN [Glucophage] 500 mg PO DAILY #30 tablet 05/17/19 [Rx] Allergies/Adverse Reactions: Allergy/AdvReac Type Severity Reaction Status Date / Time azithromycin Allergy Rash Verified 10/31/16 14:19 Date of admission: 05/15/19 20:40 Primary care physician: Irwin Cadet Jr, MD - Constitutional Vitals: Temp Pulse Resp BP Pulse Ox 97.7 F 75 16 98/64 97 05/17/19 11:11 05/17/19 11:11 05/17/19 11:11 05/17/19 11:11 05/17/19 11:11 Exam: General: Alert and oriented, no physical distress, able to follow commands. HEENT: No thyromegaly, no lymphadenopathy, no discharge. Eyes: No discharge. Respiratory: Normal vesicular breathing, no added sounds, breathing equal in both sides. CVS: Normal heart sounds, no murmurs, no edema. Extremities: No peripheral edema, peripheral pulses intact. Lymph nodes: No lymphadenopathy Gastrointestinal: Soft, nontender abdomen, normal abdominal sounds. No distention noted. Genitourinary: No paravertebral tenderness. Neurological: Alert and oriented. No focal deficits. Cranial nerves II-XII intact. - Patient Status Disposition: Home Health Service Condition: Good Functional capacity at discharge: independent ambulation Overall status at discharge: patient is back to baseline - Discharge Instructions Follow Up With: Juan Joseph [Partnered Physician] - 05/20/19 1:45 pm - Diet and Activity Activity: increase activity as tolerated Diet: diabetic diet
--- NOTE | 2019-05-17 13:08 | Physician Discharge Referral ---
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 For more information, call the [place] Tobacco Quit Line at 2-075-HWTF-NOW. - Services Needed Following services are medically necessary services: Home Health Aide (Needs help and education for thee insulin injections.) - Transfer Medications Prescriptions: metFORMIN [Glucophage] 500 mg PO DAILY #30 tablet Insulin LISPRO [Humalog Kwikpen U-100] 4 unit SQ TIDWM #10 mls Pen Needle, Diabetic [Insulin Pen Needle] 1 each MC QID #120 dis.needle Insulin Glargine,Hum.rec.anlog [Lantus Solostar] 10 unit SQ HS #30 insuln.pen Home Medications: Amlodipine Besylate 10 mg PO QDPC 05/16/19 [History] Atenolol [Tenormin] 50 mg PO DAILY 05/16/19 [History] Oxybutynin Chloride 5 mg PO BID 05/16/19 [History] Torsemide 5 mg PO QDPC 05/16/19 [History] Insulin Glargine,Hum.rec.anlog [Lantus Solostar] 10 unit SQ HS #30 insuln.pen 05/17/19 [Rx] Insulin LISPRO [Humalog Kwikpen U-100] 4 unit SQ TIDWM #10 mls 05/17/19 [Rx] Pen Needle, Diabetic [Insulin Pen Needle] 1 each MC QID #120 dis.needle 05/17/19 [Rx] metFORMIN [Glucophage] 500 mg PO DAILY #30 tablet 05/17/19 [Rx] Allergies/Adverse Reactions: Allergy/AdvReac Type Severity Reaction Status Date / Time azithromycin Allergy Rash Verified 10/31/16 14:19 Certification: Further, I certify that my clinical findings support that this patient is ho mebound (i.e. absences from home require considerable and taxing effort and are for medical reasons or zoroastrian services or infrequently or short duration when for other reasons) because: Homebound Reason: Leaving home requires considerable and taxing effort due to condition Attestation: My signature below is to certify that this patient is under my care and that I, or nurse practitioner, or a physician's transition assistant working with me, has a [id number] encounter with this patient.
== END 2019-05-17 14:26 | disposition home health service (06) ==
LOC: EMEROOARM 15:54 → 2NNU 15:54 → SUATTDRO 05-16 00:04 → 3BNU 05-16 19:20
PROVIDERS: ADMIT Internal Medicine; ATTEND Internal Medicine

== ENCOUNTER 2019-11-28 17:53 | Inpatient (IN) ==
[2019-11-28] MEDS ORDERED: Tdap (Boostrix) Vaccine 0.5 ML SYRINGE IM ONE (18:05)
[2019-11-28] MEDS ORDERED: Lidocaine/EPI 1:100k 2% 20 ML VIAL INFILT ONE (18:25)
[2019-11-28 20:15] LABS: Hematocrit 43.4 % (35.3-44.9); Hemoglobin 15.3 g/dL (11.5-15.4); Mean Corpuscular HGB Conc 35.3 g/dL (31.6-35.5); Mean Corpuscular Hemoglobin 31.1 pg (28.0-33.3); Mean Corpuscular Volume 88.2 fL (83.0-100.0); Mean Platelet Volume 10.5 fL (9.4-12.4); Platelet Count 296 K/mcL (140-400); Red Blood Count 4.92 M/mcL (3.82-4.97); Red Cell Distribution Width 13.1 % (11.5-14.5); White Blood Count 7.7 K/mcL (4.3-11.1)
[2019-11-28 20:29] LABS: Bilirubin,Urine Negative (Negative); Blood,Urine Moderate (Negative); Clarity,Urine Cloudy (Clear); Color,Urine Yellow (Yellow); Glucose,Urine (UA) Normal (Normal); Ketones,Urine 15 mg/dL (Negative); Leukocyte Esterase,Urine Moderate (Negative); Nitrite,Urine Negative (Negative); Protein,Urine 30 mg/dL (Neg-Trace); Specific Gravity,Urine 1.023 (1.010-1.025); Urobilinogen,Urine Normal (Normal)
[2019-11-28 20:30] LABS: Bacteria,Urine None Seen per hpf (None-Few); Hyaline Casts,Urine Few per lpf (None-Few); RBC,Urine 0-3 per hpf (0-3); Squamous Epithelial Cell,Urine Many per lpf (None-Few); WBC,Urine 15-30 per hpf (0-3)
[2019-11-28] MEDS: Acetaminophen 325 MG TABLET PO PRN (23:23)
[2019-11-28] MEDS ORDERED: Naloxone 0.4 MG/ML INJ IVP PRN (23:42)
[2019-11-29 06:04] LABS: INR 1.1
[2019-11-29 06:25] LABS: Calcium 9.5 mg/dL (8.6-10.3); Potassium 3.6 mEq/L (3.5-5.1)
[2019-11-29 06:36] LABS: Thyroid Stimulating Hormone 1.348 mcIU/mL (0.340-5.600)
[2019-11-29] MEDS: Torsemide 20 MG TABLET PO SCH (08:19)
[2019-11-29] MEDS: Insulin LISPRO 300 UNITS/3 ML VIAL SQ SCH ×4 (08:24→20:49)
[2019-11-29] MEDS ORDERED: amLODIPine 5 MG TABLET PO SCH (09:00)
[2019-11-29] MEDS: Acetaminophen 325 MG TABLET PO PRN ×2 (09:42→23:21)
[2019-11-29] MEDS ORDERED: Aspirin 325 MG TABLET PO ONE (11:39)
[2019-11-29] MEDS ORDERED: Isovue-370 500 ML BOTTLE IVP ONE (12:30)
[2019-11-29] MEDS ORDERED: *HR* Metoprolol 5 MG/5 ML VIAL IVP PRN (12:34)
[2019-11-29] MEDS ORDERED: *HR* Dextrose 50 % in Water (Syg) 50 ML SYRINGE IVP PRN (13:54)
[2019-11-29] MEDS ORDERED: D5% in Water 1,000 ML IVC PRN (13:54)
[2019-11-29] MEDS ORDERED: Dextrose Gel 15 GM/37.5 ML TUBE PO PRN ×2 (13:54)
[2019-11-29 14:27] LABS: Estimated Average Glucose 169 mg/dl
[2019-11-29] MEDS ORDERED: *HR* Heparin 5,000 UNIT/ML VIAL IVP PRN ×2 (16:44)
[2019-11-29 17:42] LABS: Prothrombin Time 11.2 Seconds (9.4-12.1)
[2019-11-29] MEDS ORDERED: *HR* Heparin 5,000 UNIT/ML VIAL SQ SCH (18:00)
[2019-11-29 19:03] LABS: Hematocrit 43.9 % (35.3-44.9); Hemoglobin 15.6 g/dL (11.5-15.4); Mean Corpuscular HGB Conc 35.5 g/dL (31.6-35.5); Mean Corpuscular Hemoglobin 31.6 pg (28.0-33.3); Mean Corpuscular Volume 88.9 fL (83.0-100.0); Mean Platelet Volume 11.2 fL (9.4-12.4); Platelet Count 303 K/mcL (140-400); Red Blood Count 4.94 M/mcL (3.82-4.97); Red Cell Distribution Width 13.2 % (11.5-14.5); White Blood Count 9.6 K/mcL (4.3-11.1)
[2019-11-29] MEDS: Heparin 25,000 UNIT/250 ML D5W 25,000 UNIT/250 ML IV.SOLN IVC SCH (19:11)
[2019-11-30 01:45] LABS: Basophils # 0.1 K/mcL (0.0-0.2); Basophils % 0.8 %; Eosinophils # 0.4 K/mcL (0.0-0.6); Eosinophils % 4.6 %; Hematocrit 40.6 % (35.3-44.9); Immature Granulocytes % 0.1 % (0-4); Lymphocytes # 2.7 K/mcL (0.6-4.6); Mean Corpuscular Hemoglobin 30.8 pg (28.0-33.3); Mean Corpuscular Volume 90.6 fL (83.0-100.0); Mean Platelet Volume 10.9 fL (9.4-12.4); Monocytes # 0.9 K/mcL (0.0-1.3); Monocytes % 11.2 %; Neutrophils # 3.8 K/mcL (1.6-8.9); Platelet Count 256 K/mcL (140-400); Red Blood Count 4.48 M/mcL (3.82-4.97); Segmented Neutrophils % 48.3 %; White Blood Count 7.8 K/mcL (4.3-11.1)
[2019-11-30 01:51] LABS: Hemoglobin 13.8 g/dL (11.5-15.4)
[2019-11-30 01:59] LABS: Calcium 9.4 mg/dL (8.6-10.3); Potassium 3.3 mEq/L (3.5-5.1)
[2019-11-30] MEDS: Torsemide 20 MG TABLET PO SCH (08:13)
[2019-11-30] MEDS: Aspirin 81 MG TAB.CHEW PO SCH (08:14)
[2019-11-30] MEDS: Insulin LISPRO 300 UNITS/3 ML VIAL SQ SCH ×4 (08:15→20:42)
[2019-11-30] MEDS: Cholecalciferol (D-3) 1,000 UNIT (25MCG) TABLET PO SCH (13:04)
[2019-11-30] MEDS: Acetaminophen 325 MG TABLET PO PRN (23:54)
[2019-12-01 03:04] LABS: Basophils # 0.1 K/mcL (0.0-0.2); Basophils % 0.7 %; Eosinophils # 0.3 K/mcL (0.0-0.6); Eosinophils % 3.5 %; Hematocrit 40.1 % (35.3-44.9); Immature Granulocytes % 0.2 % (0-4); Lymphocytes # 2.7 K/mcL (0.6-4.6); Lymphocytes % 30.5 %; Mean Corpuscular HGB Conc 34.9 g/dL (31.6-35.5); Mean Corpuscular Hemoglobin 30.2 pg (28.0-33.3); Mean Corpuscular Volume 86.6 fL (83.0-100.0); Mean Platelet Volume 11.5 fL (9.4-12.4); Monocytes # 0.9 K/mcL (0.0-1.3); Monocytes % 9.8 %; Platelet Count 275 K/mcL (140-400); Red Blood Count 4.63 M/mcL (3.82-4.97); Red Cell Distribution Width 13.1 % (11.5-14.5); Segmented Neutrophils % 55.3 %
[2019-12-01] MEDS: Heparin 25,000 UNIT/250 ML D5W 25,000 UNIT/250 ML IV.SOLN IVC SCH (03:09)
[2019-12-01 03:21] LABS: Calcium 9.4 mg/dL (8.6-10.3); Potassium 3.3 mEq/L (3.5-5.1)
[2019-12-01] MEDS: Insulin LISPRO 300 UNITS/3 ML VIAL SQ SCH ×4 (08:40→21:15)
[2019-12-01] MEDS: Cholecalciferol (D-3) 1,000 UNIT (25MCG) TABLET PO SCH (08:41)
[2019-12-01] MEDS: Aspirin 81 MG TAB.CHEW PO SCH (08:41)
[2019-12-01] MEDS: Torsemide 20 MG TABLET PO SCH (08:41)
[2019-12-01] MEDS: Insulin DETEMIR 100 UNIT/ML X5UNITS SQ SCH (12:01)
[2019-12-01] MEDS: amLODIPine 5 MG TABLET PO SCH (12:01)
[2019-12-01] MEDS: 0.9 % Sodium Chloride 1,000 ML IVC SCH (23:56)
[2019-12-02] MEDS: Torsemide 20 MG TABLET PO SCH (07:50)
[2019-12-02] MEDS: amLODIPine 5 MG TABLET PO SCH (07:50)
[2019-12-02] MEDS: Insulin DETEMIR 100 UNIT/ML X5UNITS SQ SCH (07:50)
[2019-12-02] MEDS: Cholecalciferol (D-3) 1,000 UNIT (25MCG) TABLET PO SCH (07:51)
[2019-12-02] MEDS: Aspirin 81 MG TAB.CHEW PO SCH (07:51)
[2019-12-02] MEDS: Insulin LISPRO 300 UNITS/3 ML VIAL SQ SCH ×4 (07:51→21:01)
[2019-12-02] MEDS: Heparin 25,000 UNIT/250 ML D5W 25,000 UNIT/250 ML IV.SOLN IVC SCH ×2 (12:36→21:02)
[2019-12-02] MEDS: Acetaminophen 325 MG TABLET PO PRN (22:19)
[2019-12-03] MEDS: 0.9 % Sodium Chloride 1,000 ML IVC SCH ×2 (02:50→14:17)
[2019-12-03] MEDS: amLODIPine 5 MG TABLET PO SCH (08:04)
[2019-12-03] MEDS: Cholecalciferol (D-3) 1,000 UNIT (25MCG) TABLET PO SCH (08:04)
[2019-12-03] MEDS: Aspirin 81 MG TAB.CHEW PO SCH (08:04)
[2019-12-03] MEDS: Torsemide 20 MG TABLET PO SCH (08:04)
[2019-12-03] MEDS: Insulin LISPRO 300 UNITS/3 ML VIAL SQ SCH ×4 (08:04→20:29)
[2019-12-03] MEDS: Insulin DETEMIR 100 UNIT/ML X5UNITS SQ SCH (08:10)
[2019-12-03 09:39] LABS: Calcium 9.4 mg/dL (8.6-10.3); Potassium 3.4 mEq/L (3.5-5.1)
[2019-12-03] MEDS: Heparin 25,000 UNIT/250 ML D5W 25,000 UNIT/250 ML IV.SOLN IVC SCH ×2 (17:35→23:49)
[2019-12-03] MEDS: Acetaminophen 325 MG TABLET PO PRN (19:55)
[2019-12-04] MEDS: Acetaminophen 325 MG TABLET PO PRN (02:24)
[2019-12-04 06:10] LABS: Hematocrit 42.8 % (35.3-44.9); Hemoglobin 14.9 g/dL (11.5-15.4); Mean Corpuscular HGB Conc 34.8 g/dL (31.6-35.5); Mean Corpuscular Hemoglobin 30.8 pg (28.0-33.3); Mean Corpuscular Volume 88.4 fL (83.0-100.0); Mean Platelet Volume 11.4 fL (9.4-12.4); Platelet Count 296 K/mcL (140-400); Red Blood Count 4.84 M/mcL (3.82-4.97); Red Cell Distribution Width 13.3 % (11.5-14.5); White Blood Count 9.6 K/mcL (4.3-11.1)
[2019-12-04 06:37] LABS: Calcium 9.6 mg/dL (8.6-10.3); Potassium 4.2 mEq/L (3.5-5.1)
[2019-12-04] MEDS: Insulin LISPRO 300 UNITS/3 ML VIAL SQ SCH ×4 (09:20→21:10)
[2019-12-04] MEDS: Torsemide 20 MG TABLET PO SCH (09:21)
[2019-12-04] MEDS: Insulin DETEMIR 100 UNIT/ML X5UNITS SQ SCH (09:21)
[2019-12-04] MEDS: Aspirin 81 MG TAB.CHEW PO SCH (09:21)
[2019-12-04] MEDS: Cholecalciferol (D-3) 1,000 UNIT (25MCG) TABLET PO SCH (09:21)
[2019-12-04] MEDS: amLODIPine 5 MG TABLET PO SCH (09:21)
[2019-12-04] MEDS: 0.9 % Sodium Chloride 1,000 ML IVC SCH (23:56)
[2019-12-05] MEDS: Ondansetron 4 MG/2 ML VIAL IVP ONE ×2 (01:26→11:47)
[2019-12-05] MEDS ORDERED: Ondansetron 4 MG/2 ML VIAL IVP PRN ×2 (03:13→12:34)
[2019-12-05 05:02] LABS: Hematocrit 43.2 % (35.3-44.9); Mean Corpuscular HGB Conc 34.7 g/dL (31.6-35.5); Mean Corpuscular Hemoglobin 30.5 pg (28.0-33.3); Mean Platelet Volume 11.5 fL (9.4-12.4); Platelet Count 288 K/mcL (140-400); Red Blood Count 4.91 M/mcL (3.82-4.97); Red Cell Distribution Width 13.4 % (11.5-14.5); White Blood Count 11.3 K/mcL (4.3-11.1)
[2019-12-05 05:20] LABS: Calcium 10.2 mg/dL (8.6-10.3); Potassium 4.2 mEq/L (3.5-5.1)
[2019-12-05] MEDS ORDERED: NiCARdipine 2.5 MG/10 ML Syringe IVPB ONE (06:38)
[2019-12-05] MEDS ORDERED: Protamine Sulfate 50 MG/5 ML VIAL IVP ONE (06:43)
[2019-12-05] MEDS ORDERED: Bupivacaine-MPF 0.25% 10 ML VIAL ONE (06:43)
[2019-12-05] MEDS ORDERED: Vancomycin 1,000 MG VIAL ONE ×2 (06:44→07:56)
[2019-12-05] MEDS ORDERED: Heparin 1,000 UNITS/500 mL 500 ML ONE ×2 (06:44→07:37)
[2019-12-05] MEDS ORDERED: Lidocaine 1% 20 ML MDV ONE (06:44)
[2019-12-05] MEDS ORDERED: Ondansetron 4 MG/2 ML VIAL ONE ×2 (06:55→07:56)
[2019-12-05] MEDS ORDERED: *HR* Phenylephrine 10 MG/ML VIAL ONE (06:55)
[2019-12-05] MEDS ORDERED: *HR* Heparin 5,000 UNIT/ML VIAL ONE (06:55)
[2019-12-05] MEDS ORDERED: Lidocaine -MPF 4% 5 ML AMPUL ONE (06:55)
[2019-12-05] MEDS ORDERED: *HR* Succinylcholine 200 MG/10 ML VIAL IVP ONE (06:55)
[2019-12-05] MEDS ORDERED: *HR* Remifentanil 2 MG VIAL IVP ONE (06:56)
[2019-12-05] MEDS ORDERED: *HR* FentaNYL (PF) 100 MCG/2 ML VIAL ONE (07:05)
[2019-12-05] MEDS ORDERED: *HR* Rocuronium Bromide 50 MG/5 ML VIAL ONE (07:07)
[2019-12-05] MEDS ORDERED: *HR* Propofol 200 MG/20 ML VIAL IVP ONE (07:07)
[2019-12-05] MEDS ORDERED: ceFAZolin 2,000 MG in Water for inj. (sterile) 20 ML IVP ONE (07:29)
[2019-12-05] MEDS ORDERED: Lidocaine -MPF 1% 5 ML AMPUL ONE (07:34)
[2019-12-05] MEDS ORDERED: EPHEDrine 50 MG/ML VIAL ONE (08:07)
[2019-12-05] MEDS ORDERED: Esmolol 100 MG/10 ML VIAL IVP ONE (10:47)
[2019-12-05] MEDS ORDERED: *HR* OxyCODONE Immed Rel 5 MG TABLET PO PRN ×2 (11:23→12:34)
[2019-12-05] MEDS ORDERED: Ondansetron 4 MG/2 ML VIAL IVP ONE (11:23)
[2019-12-05] MEDS ORDERED: *HR* HYDROmorphone (PF) 1 MG/ML SYRINGE IVP PRN (11:23)
[2019-12-05] MEDS ORDERED: Ringers Solution, Lactated 1,000 ML IVC SCH (11:30)
[2019-12-05] MEDS ORDERED: *HR* Dextrose 50 % in Water (Syg) 50 ML SYRINGE IVP PRN (12:34)
[2019-12-05] MEDS ORDERED: *HR* HYDROcodone/Acet 5/325 mg TABLET PO PRN (12:34)
[2019-12-05] MEDS ORDERED: Acetaminophen 325 MG TABLET PO PRN (12:34)
[2019-12-05] MEDS ORDERED: *HR* Labetalol 20 MG/4 ML SYRINGE IVP PRN (12:34)
[2019-12-05] MEDS ORDERED: D5% in Water 1,000 ML IVC PRN (12:34)
[2019-12-05] MEDS ORDERED: Naloxone 0.4 MG/ML INJ IVP PRN (12:34)
[2019-12-05] MEDS ORDERED: Dextrose Gel 15 GM/37.5 ML TUBE PO PRN ×2 (12:34)
[2019-12-05] MEDS ORDERED: 0.9 % Sodium Chloride 1,000 ML IVC SCH (12:34)
[2019-12-05] MEDS ORDERED: Vancomycin 1,000 MG, Sodium Chloride IRRigation 1,000 ML IR ONE (12:35)
[2019-12-05] MEDS: *HR* Metoprolol 5 MG/5 ML VIAL IVP SCH ×2 (14:18→17:41)
[2019-12-05] MEDS: ceFAZolin 2,000 MG in 0.9 % Sodium Chloride 100 ML IVPB SCH (16:45)
[2019-12-05] MEDS: Insulin LISPRO 300 UNITS/3 ML VIAL SQ SCH (16:54)
[2019-12-05] MEDS ORDERED: Insulin LISPRO 300 UNITS/3 ML VIAL SQ SCH (21:00)
[2019-12-06] MEDS: ceFAZolin 2,000 MG in 0.9 % Sodium Chloride 100 ML IVPB SCH (00:12)
[2019-12-06] MEDS: *HR* Metoprolol 5 MG/5 ML VIAL IVP SCH ×2 (00:13→05:29)
[2019-12-06 05:42] LABS: Hematocrit 41.1 % (35.3-44.9); Hemoglobin 13.6 g/dL (11.5-15.4); Immature Granulocytes % 0.4 % (0-4); Mean Corpuscular HGB Conc 33.1 g/dL (31.6-35.5); Mean Corpuscular Volume 93.6 fL (83.0-100.0); Mean Platelet Volume 11.5 fL (9.4-12.4); Platelet Count 255 K/mcL (140-400); Red Blood Count 4.39 M/mcL (3.82-4.97); Red Cell Distribution Width 13.9 % (11.5-14.5); Segmented Neutrophils % 75.7 %
[2019-12-06 05:43] LABS: Basophils # 0.1 K/mcL (0.0-0.2); Basophils % 0.5 %; Eosinophils # 0.3 K/mcL (0.0-0.6); Eosinophils % 2.5 %; Lymphocytes # 1.6 K/mcL (0.6-4.6); Lymphocytes % 11.9 %; Monocytes # 1.2 K/mcL (0.0-1.3); Neutrophils # 9.9 K/mcL (1.6-8.9)
[2019-12-06 06:07] LABS: Calcium 9.6 mg/dL (8.6-10.3); Potassium 4.6 mEq/L (3.5-5.1)
[2019-12-06] MEDS: Insulin LISPRO 300 UNITS/3 ML VIAL SQ SCH ×2 (08:15→11:46)
[2019-12-06 08:29] VITALS: BP 146/81
[2019-12-06] MEDS ORDERED: Torsemide 20 MG TABLET PO SCH (09:00)
[2019-12-06] MEDS ORDERED: Insulin DETEMIR 100 UNIT/ML X5UNITS SQ SCH (09:00)
[2019-12-06] MEDS ORDERED: Cholecalciferol (D-3) 1,000 UNIT (25MCG) TABLET PO SCH (09:00)
[2019-12-06] MEDS ORDERED: Aspirin 81 MG TAB.CHEW PO SCH (09:00)
[2019-12-06] MEDS ORDERED: amLODIPine 5 MG TABLET PO SCH (09:00)
== END 2019-12-06 13:25 | disposition home health service (06) | DRG 39 ==
LOC: EMEROOARM 17:53 → 3NENU 17:53 → SUATTDRO 11-29 14:48 → ICNU 12-05 08:49
PROVIDERS: ADMIT Internal Medicine; ATTEND Student in an Organized Health Care Education/Training Program

== ENCOUNTER 2021-04-08 06:12 | Inpatient (IN) ==
[2021-04-08] MEDS ORDERED: *HR* Remifentanil 2 MG VIAL IVP ONE (06:27)
[2021-04-08] MEDS ORDERED: *HR* Propofol 200 MG/20 ML VIAL IVP ONE (06:27)
[2021-04-08] MEDS ORDERED: *HR* FentaNYL (PF) 100 MCG/2 ML VIAL ONE ×2 (06:27→09:55)
[2021-04-08] MEDS ORDERED: Ondansetron 4 MG/2 ML VIAL ONE (06:34)
[2021-04-08] MEDS ORDERED: Lidocaine -MPF 2% 2 ML VIAL ONE ×2 (06:34→07:52)
[2021-04-08] MEDS ORDERED: Lidocaine -MPF 4% 5 ML AMPUL ONE (06:34)
[2021-04-08] MEDS ORDERED: *HR* Rocuronium Bromide 50 MG/5 ML VIAL ONE (06:34)
[2021-04-08] MEDS ORDERED: CeFAZolin Syr 2,000MG/20 ML 2,000 MG/20 ML SYRINGE IVPB ONE (06:40)
[2021-04-08] MEDS ORDERED: *HR* Heparin 5,000 UNIT/ML VIAL ONE (06:42)
[2021-04-08] MEDS ORDERED: Ringers Solution, Lactated 1,000 ML IVC SCH ×2 (06:45→07:15)
[2021-04-08] MEDS ORDERED: *HR* Phenylephrine 10 MG/ML VIAL ONE (06:51)
[2021-04-08] MEDS ORDERED: *HR* Vasopressin 20 UNIT/ML VIAL ONE (06:55)
[2021-04-08] MEDS ORDERED: Albumin Human 5% 0 GM/0 ML IV.SOLN ONE (06:55)
[2021-04-08] MEDS ORDERED: Protamine Sulfate 50 MG/5 ML VIAL IVP ONE ×3 (07:09→12:37)
[2021-04-08] MEDS ORDERED: Bupivacaine-MPF 0.25% 10 ML VIAL ONE (07:09)
[2021-04-08] MEDS ORDERED: Heparin 1,000 UNITS/500 mL 1,000 ML ONE (07:09)
[2021-04-08] MEDS ORDERED: Vancomycin 1,000 MG VIAL ONE (07:10)
[2021-04-08] MEDS ORDERED: Heparin 1,000 UNITS/500 mL 0 ML ONE (07:12)
[2021-04-08] MEDS ORDERED: *HR* Labetalol 20 MG/4 ML SYRINGE IVP PRN (07:14)
[2021-04-08] MEDS ORDERED: Ondansetron 4 MG/2 ML VIAL IVP PRN ×2 (07:14→14:11)
[2021-04-08] MEDS ORDERED: *HR* OxyCODONE/APAP 5/325 TABLET PO PRN (07:14)
[2021-04-08] MEDS ORDERED: Vancomycin 1,000 MG, Sodium Chloride IRRigation 1,000 ML IR ONE (07:45)
[2021-04-08] MEDS ORDERED: EPHEDrine 50 MG/ML VIAL ONE (08:18)
[2021-04-08 13:04] LABS: ABG Base Excess -1 mEq/L (-2 to 3); ABG Chloride 104 mEq/L (98-107); ABG Glucose 231 mg/dL (60-95); ABG HCO3 25 mEq/L (21-27); ABG Oxygen Saturation 97 % (95-98); ABG PCO2 45 mmHg (35-45); ABG PH 7.35 pH Units (7.32-7.45); ABG PO2 94 mmHg (85-104); ABG TCO2 26 mEq/L (20-26)
[2021-04-08] MEDS ORDERED: D5% in Water 1,000 ML IVC PRN (14:11)
[2021-04-08] MEDS ORDERED: Dextrose Gel 15 GM/37.5 ML TUBE PO PRN ×2 (14:11)
[2021-04-08] MEDS ORDERED: 0.9 % Sodium Chloride 1,000 ML IVC SCH (14:11)
[2021-04-08] MEDS ORDERED: Acetaminophen 325 MG TABLET PO PRN (14:11)
[2021-04-08] MEDS ORDERED: Naloxone 0.4 MG/ML INJ IVP PRN (14:11)
[2021-04-08] MEDS ORDERED: *HR* OxyCODONE Immed Rel 5 MG TABLET PO PRN (14:11)
[2021-04-08] MEDS ORDERED: *HR* Dextrose 50 % in Water (Vial) 50 ML VIAL IVP PRN (14:11)
[2021-04-08] MEDS ORDERED: CeFAZolin 2 GM/120 ML BAG IVPB SCH (14:30)
[2021-04-08] MEDS: Cholecalciferol (D-3) 1,000 UNIT (25MCG) TABLET PO SCH (15:08)
[2021-04-08] MEDS: atenoloL 50 MG TABLET PO SCH (15:08)
[2021-04-08] MEDS: Aspirin 81 MG TAB.CHEW PO SCH (15:08)
[2021-04-08] MEDS: Torsemide 20 MG TABLET PO SCH (15:08)
[2021-04-08] MEDS: Insulin LISPRO 300 UNITS/3 ML VIAL SUBQ SCH ×3 (15:08→20:20)
[2021-04-08] MEDS: *HR* Metoprolol 5 MG/5 ML VIAL IVP SCH ×3 (15:08→23:41)
[2021-04-08] MEDS: amLODIPine 5 MG TABLET PO SCH (15:09)
[2021-04-08] MEDS: CeFAZolin 2 GM/120 ML BAG IVPB SCH ×2 (15:23→23:10)
[2021-04-08] MEDS ORDERED: diazePAM 10 MG/2 ML SYRINGE IVP ONE (16:10)
[2021-04-08] MEDS: *HR* Heparin 5,000 UNIT/ML VIAL SQ SCH (23:18)
[2021-04-09] MEDS: *HR* Metoprolol 5 MG/5 ML VIAL IVP SCH (04:43)
[2021-04-09] MEDS: *HR* Labetalol 20 MG/4 ML SYRINGE IVP PRN ×3 (05:58→18:10)
[2021-04-09] MEDS ORDERED: *HR* Heparin 5,000 UNIT/ML VIAL SQ SCH (06:00)
[2021-04-09] MEDS: Insulin LISPRO 300 UNITS/3 ML VIAL SUBQ SCH ×4 (07:44→20:42)
[2021-04-09] MEDS: Aspirin 81 MG TAB.CHEW PO SCH (07:45)
[2021-04-09] MEDS: Torsemide 20 MG TABLET PO SCH (07:45)
[2021-04-09] MEDS: amLODIPine 5 MG TABLET PO SCH (07:45)
[2021-04-09] MEDS: Cholecalciferol (D-3) 1,000 UNIT (25MCG) TABLET PO SCH (07:45)
[2021-04-09] MEDS: atenoloL 50 MG TABLET PO SCH (07:45)
[2021-04-09] MEDS ORDERED: Acetaminophen 325 MG TABLET PO PRN (13:47)
[2021-04-09 13:53] LABS: VBG Ionized Calcium 1.04 mmol/L (1.15-1.35)
[2021-04-09 14:12] LABS: BUN/Creatinine Ratio 18 (6-26); Blood Urea Nitrogen 19 mg/dL (8-23); Calcium 9.5 mg/dL (8.6-10.3); Carbon Dioxide 23 mEq/L (23-29); Chloride 106 mEq/L (98-107); Glucose 224 mg/dL (70-105); Magnesium 1.5 mg/dL (1.6-2.6); Osmolality,Calculated 295 (280-300); Phosphorous 2.3 mg/dL (2.7-4.5); Potassium 3.8 mEq/L (3.5-5.1); Sodium 138 mEq/L (136-145); eGFR For African Americans > 60 (> 60); eGFR For Non-African Americans 50 (> 60)
[2021-04-09 14:17] LABS: Basophils # 0.1 K/mcL (0.0-0.2); Basophils % 0.3 %; Eosinophils # 0.1 K/mcL (0.0-0.6); Eosinophils % 0.4 %; Hematocrit 38.9 % (35.3-44.9); Hemoglobin 13.2 g/dL (11.5-15.4); Immature Granulocytes % 0.4 % (0-4); Lymphocytes # 1.8 K/mcL (0.6-4.6); Lymphocytes % 11.8 %; Mean Corpuscular HGB Conc 33.9 g/dL (31.6-35.5); Mean Corpuscular Hemoglobin 31.1 pg (28.0-33.3); Mean Corpuscular Volume 91.5 fL (83.0-100.0); Mean Platelet Volume 10.9 fL (9.4-12.4); Monocytes # 1.5 K/mcL (0.0-1.3); Monocytes % 10.2 %; Neutrophils # 11.6 K/mcL (1.6-8.9); Platelet Count 193 K/mcL (140-400); Red Blood Count 4.25 M/mcL (3.82-4.97); Red Cell Distribution Width 13.6 % (11.5-14.5); Segmented Neutrophils % 76.9 %; White Blood Count 15.1 K/mcL (4.3-11.1)
[2021-04-09 14:20] LABS: Platelet Estimate Normal (Normal)
[2021-04-09] MEDS: Calcium Gluconate 1gm/50mL 1 GM/50 ML BAG IVPB PRN (17:09)
[2021-04-09 22:22] LABS: VBG Ionized Calcium 1.03 mmol/L (1.15-1.35)
[2021-04-10] MEDS: Calcium Gluconate 1gm/50mL 1 GM/50 ML BAG IVPB PRN (00:02)
[2021-04-10 04:30] LABS: VBG Ionized Calcium 1.17 mmol/L (1.15-1.35)
[2021-04-10 04:41] LABS: BUN/Creatinine Ratio 18 (6-26); Blood Urea Nitrogen 16 mg/dL (8-23); Calcium 9.6 mg/dL (8.6-10.3); Carbon Dioxide 22 mEq/L (23-29); Chloride 102 mEq/L (98-107); Glucose 229 mg/dL (70-105); Magnesium 2.3 mg/dL (1.6-2.6); Osmolality,Calculated 290 (280-300); Phosphorous 3.2 mg/dL (2.7-4.5); Potassium 3.4 mEq/L (3.5-5.1); Sodium 136 mEq/L (136-145); eGFR For African Americans > 60 (> 60); eGFR For Non-African Americans > 60 (> 60)
[2021-04-10] MEDS: *HR* Heparin 5,000 UNIT/ML VIAL SQ SCH ×2 (06:18→17:05)
[2021-04-10] MEDS: Insulin LISPRO 300 UNITS/3 ML VIAL SUBQ SCH ×4 (08:54→20:35)
[2021-04-10] MEDS: amLODIPine 5 MG TABLET PO SCH (08:54)
[2021-04-10] MEDS: Aspirin 81 MG TAB.CHEW PO SCH (08:54)
[2021-04-10] MEDS: Torsemide 20 MG TABLET PO SCH (08:54)
[2021-04-10] MEDS: Cholecalciferol (D-3) 1,000 UNIT (25MCG) TABLET PO SCH (08:55)
[2021-04-10] MEDS: atenoloL 50 MG TABLET PO SCH (08:55)
[2021-04-10] MEDS: *HR* Labetalol 20 MG/4 ML SYRINGE IVP PRN ×5 (09:07→20:24)
[2021-04-10 14:17] LABS: BUN/Creatinine Ratio 19 (6-26); Blood Urea Nitrogen 16 mg/dL (8-23); Calcium 9.7 mg/dL (8.6-10.3); Carbon Dioxide 24 mEq/L (23-29); Chloride 101 mEq/L (98-107); Glucose 245 mg/dL (70-105); Osmolality,Calculated 291 (280-300); Potassium 3.6 mEq/L (3.5-5.1); Sodium 136 mEq/L (136-145); eGFR For African Americans > 60 (> 60); eGFR For Non-African Americans > 60 (> 60)
[2021-04-10] MEDS: Haloperidol Lactate 5 MG/ML VIAL IVP PRN (15:41)
[2021-04-10] MEDS: Pantoprazole 40 MG VIAL IVP SCH (15:42)
[2021-04-10] MEDS: Ampicillin/Sulbactam 1,500 MG in 0.9 % Sodium Chloride Mini Bag 100 ML IVPB SCH ×2 (15:42→20:24)
[2021-04-10] MEDS ORDERED: Ondansetron 4 MG/2 ML VIAL IVP PRN (15:44)
[2021-04-10] MEDS ORDERED: Isovue-370 500 ML BOTTLE IVP ONE (15:50)
[2021-04-10 16:26] LABS: Basophils # 0.1 K/mcL (0.0-0.2); Basophils % 0.3 %; Eosinophils % 0.2 %; Hematocrit 42.1 % (35.3-44.9); Hemoglobin 14.3 g/dL (11.5-15.4); Immature Granulocytes % 0.5 % (0-4); Lymphocytes # 1.2 K/mcL (0.6-4.6); Lymphocytes % 6.7 %; Mean Corpuscular Hemoglobin 30.9 pg (28.0-33.3); Mean Corpuscular Volume 90.9 fL (83.0-100.0); Mean Platelet Volume 10.6 fL (9.4-12.4); Monocytes # 1.7 K/mcL (0.0-1.3); Monocytes % 9.1 %; Neutrophils # 15.2 K/mcL (1.6-8.9); Platelet Count 266 K/mcL (140-400); Red Blood Count 4.63 M/mcL (3.82-4.97); Red Cell Distribution Width 13.6 % (11.5-14.5); Segmented Neutrophils % 83.2 %; White Blood Count 18.2 K/mcL (4.3-11.1)
[2021-04-11 02:21] LABS: Basophils % 0.2 %; Eosinophils % 0.2 %; Immature Granulocytes % 0.5 % (0-4); Lymphocytes # 1.7 K/mcL (0.6-4.6); Lymphocytes % 9.7 %; Mean Corpuscular HGB Conc 34.7 g/dL (31.6-35.5); Mean Corpuscular Hemoglobin 31.8 pg (28.0-33.3); Mean Corpuscular Volume 91.6 fL (83.0-100.0); Mean Platelet Volume 10.7 fL (9.4-12.4); Monocytes # 1.8 K/mcL (0.0-1.3); Monocytes % 10.1 %; Platelet Count 229 K/mcL (140-400); Red Blood Count 3.93 M/mcL (3.82-4.97); Red Cell Distribution Width 13.6 % (11.5-14.5); Segmented Neutrophils % 79.3 %; White Blood Count 17.6 K/mcL (4.3-11.1)
[2021-04-11 02:23] LABS: Hemoglobin 12.5 g/dL (11.5-15.4)
[2021-04-11 02:40] LABS: BUN/Creatinine Ratio 18 (6-26); Blood Urea Nitrogen 17 mg/dL (8-23); Calcium 8.9 mg/dL (8.6-10.3); Carbon Dioxide 23 mEq/L (23-29); Chloride 104 mEq/L (98-107); Glucose 180 mg/dL (70-105); Osmolality,Calculated 288 (280-300); Potassium 3.7 mEq/L (3.5-5.1); Sodium 136 mEq/L (136-145); eGFR For African Americans > 60 (> 60); eGFR For Non-African Americans 54 (> 60)
[2021-04-11] MEDS: *HR* Heparin 5,000 UNIT/ML VIAL SQ SCH ×2 (04:06→16:29)
[2021-04-11] MEDS: Ampicillin/Sulbactam 1,500 MG in 0.9 % Sodium Chloride Mini Bag 100 ML IVPB SCH ×4 (04:06→21:00)
[2021-04-11] MEDS: Pantoprazole 40 MG VIAL IVP SCH ×2 (04:07→16:44)
[2021-04-11] MEDS: *HR* Labetalol 20 MG/4 ML SYRINGE IVP PRN ×5 (04:08→22:46)
[2021-04-11] MEDS: Haloperidol Lactate 5 MG/ML VIAL IVP PRN ×2 (08:00→21:51)
[2021-04-11] MEDS: Insulin LISPRO 300 UNITS/3 ML VIAL SUBQ SCH ×4 (08:02→20:51)
[2021-04-11] MEDS: Cholecalciferol (D-3) 1,000 UNIT (25MCG) TABLET PO SCH (08:04)
[2021-04-11] MEDS: atenoloL 50 MG TABLET PO SCH (08:04)
[2021-04-11] MEDS: amLODIPine 5 MG TABLET PO SCH (08:04)
[2021-04-11] MEDS: Aspirin 81 MG TAB.CHEW PO SCH (08:04)
[2021-04-11] MEDS: Torsemide 20 MG TABLET PO SCH (08:04)
[2021-04-12] MEDS: *HR* Labetalol 20 MG/4 ML SYRINGE IVP PRN ×4 (04:56→16:50)
[2021-04-12] MEDS: Pantoprazole 40 MG VIAL IVP SCH ×2 (04:57→17:18)
[2021-04-12] MEDS: Ampicillin/Sulbactam 1,500 MG in 0.9 % Sodium Chloride Mini Bag 100 ML IVPB SCH ×4 (04:57→23:15)
[2021-04-12] MEDS: *HR* Heparin 5,000 UNIT/ML VIAL SQ SCH ×2 (04:57→17:17)
[2021-04-12] MEDS: Insulin LISPRO 300 UNITS/3 ML VIAL SUBQ SCH ×4 (07:29→19:17)
[2021-04-12] MEDS: Aspirin 81 MG TAB.CHEW PO SCH (07:36)
[2021-04-12] MEDS: amLODIPine 5 MG TABLET PO SCH (07:36)
[2021-04-12] MEDS: Torsemide 20 MG TABLET PO SCH (07:36)
[2021-04-12] MEDS: Cholecalciferol (D-3) 1,000 UNIT (25MCG) TABLET PO SCH (07:37)
[2021-04-12] MEDS: atenoloL 50 MG TABLET PO SCH (07:37)
[2021-04-12 13:18] LABS: Basophils # 0.1 K/mcL (0.0-0.2); Basophils % 0.4 %; Eosinophils # 0.4 K/mcL (0.0-0.6); Eosinophils % 3.6 %; Hemoglobin 11.4 g/dL (11.5-15.4); Immature Granulocytes % 0.3 % (0-4); Lymphocytes # 1.7 K/mcL (0.6-4.6); Lymphocytes % 14.4 %; Mean Corpuscular HGB Conc 32.6 g/dL (31.6-35.5); Mean Corpuscular Hemoglobin 30.5 pg (28.0-33.3); Mean Corpuscular Volume 93.6 fL (83.0-100.0); Mean Platelet Volume 10.4 fL (9.4-12.4); Monocytes # 1.1 K/mcL (0.0-1.3); Monocytes % 9.3 %; Neutrophils # 8.5 K/mcL (1.6-8.9); Platelet Count 252 K/mcL (140-400); Red Blood Count 3.74 M/mcL (3.82-4.97); Red Cell Distribution Width 13.8 % (11.5-14.5); White Blood Count 11.8 K/mcL (4.3-11.1)
[2021-04-12] MEDS: Lactobacillus 1 EACH CAP.SPRINK PO SCH ×2 (13:48→19:49)
[2021-04-12 14:35] LABS: BUN/Creatinine Ratio 18 (6-26); Blood Urea Nitrogen 17 mg/dL (8-23); Calcium 9.3 mg/dL (8.6-10.3); Carbon Dioxide 21 mEq/L (23-29); Chloride 108 mEq/L (98-107); Glucose 160 mg/dL (70-105); Magnesium 1.9 mg/dL (1.6-2.6); Osmolality,Calculated 301 (280-300); Phosphorous 2.2 mg/dL (2.7-4.5); Potassium 3.4 mEq/L (3.5-5.1); Sodium 143 mEq/L (136-145); eGFR For African Americans > 60 (> 60); eGFR For Non-African Americans 57 (> 60)
[2021-04-12] MEDS ORDERED: atenoloL 50 MG TABLET PO ONE (17:27)
[2021-04-12] MEDS ORDERED: amLODIPine 5 MG TABLET PO ONE (17:33)
[2021-04-13] MEDS: Ampicillin/Sulbactam 1,500 MG in 0.9 % Sodium Chloride Mini Bag 100 ML IVPB SCH ×4 (04:18→22:01)
[2021-04-13] MEDS: *HR* Heparin 5,000 UNIT/ML VIAL SQ SCH ×2 (04:21→16:11)
[2021-04-13 04:43] LABS: Basophils # 0.1 K/mcL (0.0-0.2); Basophils % 0.6 %; Eosinophils # 0.4 K/mcL (0.0-0.6); Eosinophils % 3.8 %; Hematocrit 37.1 % (35.3-44.9); Hemoglobin 12.1 g/dL (11.5-15.4); Immature Granulocytes % 0.6 % (0-4); Lymphocytes # 1.9 K/mcL (0.6-4.6); Lymphocytes % 16.4 %; Mean Corpuscular HGB Conc 32.6 g/dL (31.6-35.5); Mean Corpuscular Hemoglobin 30.9 pg (28.0-33.3); Mean Corpuscular Volume 94.6 fL (83.0-100.0); Mean Platelet Volume 10.6 fL (9.4-12.4); Monocytes # 1.3 K/mcL (0.0-1.3); Monocytes % 11.1 %; Neutrophils # 7.7 K/mcL (1.6-8.9); Platelet Count 288 K/mcL (140-400); Red Blood Count 3.92 M/mcL (3.82-4.97); Red Cell Distribution Width 13.9 % (11.5-14.5); Segmented Neutrophils % 67.5 %; White Blood Count 11.4 K/mcL (4.3-11.1)
[2021-04-13] MEDS: Pantoprazole 40 MG VIAL IVP SCH ×2 (04:52→16:11)
[2021-04-13 04:55] LABS: BUN/Creatinine Ratio 19 (6-26); Blood Urea Nitrogen 19 mg/dL (8-23); Calcium 9.4 mg/dL (8.6-10.3); Carbon Dioxide 19 mEq/L (23-29); Chloride 107 mEq/L (98-107); Glucose 159 mg/dL (70-105); Osmolality,Calculated 300 (280-300); Phosphorous 2.2 mg/dL (2.7-4.5); Potassium 3.4 mEq/L (3.5-5.1); Sodium 142 mEq/L (136-145); eGFR For African Americans > 60 (> 60); eGFR For Non-African Americans 53 (> 60)
[2021-04-13] MEDS ORDERED: Potassium Chloride 20 MEQ, Lidocaine 1% 2 ML in 0.9 % Sodium Chloride 250 ML IVPB ONE (08:31)
[2021-04-13] MEDS: amLODIPine 5 MG TABLET PO SCH (09:08)
[2021-04-13] MEDS: Lactobacillus 1 EACH CAP.SPRINK PO SCH ×2 (09:08→19:46)
[2021-04-13] MEDS: Cholecalciferol (D-3) 1,000 UNIT (25MCG) TABLET PO SCH (09:08)
[2021-04-13] MEDS: Aspirin 81 MG TAB.CHEW PO SCH (09:08)
[2021-04-13] MEDS: Torsemide 20 MG TABLET PO SCH (09:08)
[2021-04-13] MEDS: Insulin LISPRO 300 UNITS/3 ML VIAL SUBQ SCH ×4 (09:08→19:42)
[2021-04-13] MEDS: atenoloL 50 MG TABLET PO SCH (09:08)
[2021-04-13] MEDS ORDERED: *HR* Propofol 200 MG/20 ML VIAL IVP ONE (15:08)
[2021-04-13] MEDS ORDERED: Lidocaine -MPF 2% 5 ML VIAL ONE (15:08)
[2021-04-13] MEDS ORDERED: amLODIPine 5 MG TABLET PO ONE (17:27)
[2021-04-13] MEDS: Haloperidol Lactate 5 MG/ML VIAL IVP PRN (22:52)
[2021-04-14] MEDS: Ampicillin/Sulbactam 1,500 MG in 0.9 % Sodium Chloride Mini Bag 100 ML IVPB SCH ×2 (04:29→09:40)
[2021-04-14 05:00] LABS: Basophils # 0.1 K/mcL (0.0-0.2); Basophils % 0.7 %; Eosinophils # 0.3 K/mcL (0.0-0.6); Eosinophils % 3.9 %; Hematocrit 36.9 % (35.3-44.9); Hemoglobin 12.1 g/dL (11.5-15.4); Immature Granulocytes % 0.6 % (0-4); Lymphocytes # 1.7 K/mcL (0.6-4.6); Lymphocytes % 19.7 %; Mean Corpuscular HGB Conc 32.8 g/dL (31.6-35.5); Mean Corpuscular Hemoglobin 30.9 pg (28.0-33.3); Mean Corpuscular Volume 94.1 fL (83.0-100.0); Mean Platelet Volume 10.5 fL (9.4-12.4); Monocytes % 12.2 %; Neutrophils # 5.3 K/mcL (1.6-8.9); Platelet Count 309 K/mcL (140-400); Red Blood Count 3.92 M/mcL (3.82-4.97); Red Cell Distribution Width 14.1 % (11.5-14.5); Segmented Neutrophils % 62.9 %; White Blood Count 8.4 K/mcL (4.3-11.1)
[2021-04-14] MEDS: *HR* Heparin 5,000 UNIT/ML VIAL SQ SCH ×2 (05:13→17:40)
[2021-04-14] MEDS: Pantoprazole 40 MG VIAL IVP SCH ×2 (05:13→17:40)
[2021-04-14 05:37] LABS: BUN/Creatinine Ratio 19 (6-26); Blood Urea Nitrogen 19 mg/dL (8-23); Calcium 9.4 mg/dL (8.6-10.3); Carbon Dioxide 21 mEq/L (23-29); Chloride 110 mEq/L (98-107); Glucose 176 mg/dL (70-105); Magnesium 1.8 mg/dL (1.6-2.6); Osmolality,Calculated 303 (280-300); Potassium 3.5 mEq/L (3.5-5.1); Sodium 143 mEq/L (136-145); eGFR For African Americans > 60 (> 60); eGFR For Non-African Americans 53 (> 60)
[2021-04-14] MEDS: Aspirin 81 MG TAB.CHEW PO SCH (08:44)
[2021-04-14] MEDS: Cholecalciferol (D-3) 1,000 UNIT (25MCG) TABLET PO SCH (08:44)
[2021-04-14] MEDS: Lactobacillus 1 EACH CAP.SPRINK PO SCH ×2 (08:44→20:24)
[2021-04-14] MEDS: amLODIPine 5 MG TABLET PO SCH (08:44)
[2021-04-14] MEDS: atenoloL 50 MG TABLET PO SCH (08:44)
[2021-04-14] MEDS: Torsemide 20 MG TABLET PO SCH (08:44)
[2021-04-14] MEDS: Insulin LISPRO 300 UNITS/3 ML VIAL SUBQ SCH ×4 (08:46→20:22)
[2021-04-14] MEDS: Nystatin SUSP 5 ML UD.LIQ BC SCH ×2 (17:40→20:24)
[2021-04-14] MEDS: Amoxicillin/Clavulanate 400 MG/5 ML UDC PO SCH (17:41)
[2021-04-15 01:21] LABS: Basophils # 0.1 K/mcL (0.0-0.2); Eosinophils # 0.7 K/mcL (0.0-0.6); Eosinophils % 6.3 %; Hematocrit 37.7 % (35.3-44.9); Hemoglobin 12.5 g/dL (11.5-15.4); Immature Granulocytes % 0.6 % (0-4); Lymphocytes % 19.7 %; Mean Corpuscular HGB Conc 33.2 g/dL (31.6-35.5); Mean Corpuscular Hemoglobin 31.2 pg (28.0-33.3); Mean Platelet Volume 10.4 fL (9.4-12.4); Monocytes # 1.5 K/mcL (0.0-1.3); Monocytes % 14.3 %; Platelet Count 265 K/mcL (140-400); Red Blood Count 4.01 M/mcL (3.82-4.97); Red Cell Distribution Width 14.1 % (11.5-14.5); Segmented Neutrophils % 58.1 %; White Blood Count 10.4 K/mcL (4.3-11.1)
[2021-04-15 01:36] LABS: BUN/Creatinine Ratio 17 (6-26); Blood Urea Nitrogen 17 mg/dL (8-23); Calcium 9.1 mg/dL (8.6-10.3); Carbon Dioxide 20 mEq/L (23-29); Chloride 107 mEq/L (98-107); Glucose 118 mg/dL (70-105); Magnesium 1.6 mg/dL (1.6-2.6); Osmolality,Calculated 295 (280-300); Phosphorous 2.3 mg/dL (2.7-4.5); Potassium 3.1 mEq/L (3.5-5.1); Sodium 141 mEq/L (136-145); eGFR For African Americans > 60 (> 60); eGFR For Non-African Americans 53 (> 60)
[2021-04-15] MEDS: Amoxicillin/Clavulanate 400 MG/5 ML UDC PO SCH ×2 (04:48→17:02)
[2021-04-15] MEDS: Pantoprazole 40 MG VIAL IVP SCH (04:49)
[2021-04-15] MEDS: *HR* Heparin 5,000 UNIT/ML VIAL SQ SCH ×2 (04:50→17:03)
[2021-04-15] MEDS: *HR* Labetalol 20 MG/4 ML SYRINGE IVP PRN ×3 (04:59→08:19)
[2021-04-15] MEDS: Aspirin 81 MG TAB.CHEW PO SCH (07:22)
[2021-04-15] MEDS: Cholecalciferol (D-3) 1,000 UNIT (25MCG) TABLET PO SCH (07:22)
[2021-04-15] MEDS: Lactobacillus 1 EACH CAP.SPRINK PO SCH ×2 (07:22→19:57)
[2021-04-15] MEDS: Nystatin SUSP 5 ML UD.LIQ BC SCH ×4 (07:23→19:57)
[2021-04-15] MEDS: atenoloL 50 MG TABLET PO SCH (07:23)
[2021-04-15] MEDS: amLODIPine 5 MG TABLET PO SCH (07:23)
[2021-04-15] MEDS: Torsemide 20 MG TABLET PO SCH (07:30)
[2021-04-15] MEDS: Potassium Chloride Elixir 20 MEQ/15 ML UDC PO SCH ×2 (08:19→11:34)
[2021-04-15] MEDS: Insulin LISPRO 300 UNITS/3 ML VIAL SUBQ SCH ×4 (08:25→19:41)
[2021-04-15] MEDS: *HR* HYDROcodone/Acet 5/325 mg TABLET PO PRN (19:57)
[2021-04-16] MEDS: *HR* HYDROcodone/Acet 5/325 mg TABLET PO PRN (05:18)
[2021-04-16] MEDS: *HR* Heparin 5,000 UNIT/ML VIAL SQ SCH ×2 (05:18→17:07)
[2021-04-16] MEDS: Amoxicillin/Clavulanate 400 MG/5 ML UDC PO SCH ×2 (05:33→17:34)
[2021-04-16 05:38] LABS: Basophils # 0.1 K/mcL (0.0-0.2); Basophils % 0.6 %; Eosinophils # 0.9 K/mcL (0.0-0.6); Eosinophils % 7.3 %; Hematocrit 38.2 % (35.3-44.9); Hemoglobin 12.8 g/dL (11.5-15.4); Immature Granulocytes % 0.8 % (0-4); Lymphocytes # 2.5 K/mcL (0.6-4.6); Lymphocytes % 21.3 %; Mean Corpuscular HGB Conc 33.5 g/dL (31.6-35.5); Mean Corpuscular Hemoglobin 30.8 pg (28.0-33.3); Mean Platelet Volume 10.8 fL (9.4-12.4); Monocytes # 1.3 K/mcL (0.0-1.3); Monocytes % 10.5 %; Platelet Count 320 K/mcL (140-400); Red Blood Count 4.15 M/mcL (3.82-4.97); Segmented Neutrophils % 59.5 %; White Blood Count 11.9 K/mcL (4.3-11.1)
[2021-04-16 06:01] LABS: Magnesium 1.4 mg/dL (1.6-2.6); Phosphorous 2.9 mg/dL (2.7-4.5); Potassium 3.3 mEq/L (3.5-5.1)
[2021-04-16] MEDS: atenoloL 50 MG TABLET PO SCH (07:21)
[2021-04-16] MEDS: Aspirin 81 MG TAB.CHEW PO SCH (07:21)
[2021-04-16] MEDS: Cholecalciferol (D-3) 1,000 UNIT (25MCG) TABLET PO SCH (07:21)
[2021-04-16] MEDS: Lactobacillus 1 EACH CAP.SPRINK PO SCH ×2 (07:22→20:46)
[2021-04-16] MEDS: Nystatin SUSP 5 ML UD.LIQ BC SCH ×4 (07:22→20:46)
[2021-04-16] MEDS: amLODIPine 5 MG TABLET PO SCH (07:22)
[2021-04-16] MEDS: Torsemide 20 MG TABLET PO SCH (07:22)
[2021-04-16] MEDS: Insulin LISPRO 300 UNITS/3 ML VIAL SUBQ SCH ×4 (08:08→22:51)
[2021-04-16] MEDS ORDERED: *HR* LORazepam 2 MG/ML VIAL IVP ONE (11:50)
[2021-04-16] MEDS: *HR* Labetalol 20 MG/4 ML SYRINGE IVP PRN (23:32)
[2021-04-17] MEDS: *HR* Heparin 5,000 UNIT/ML VIAL SQ SCH ×2 (05:10→17:36)
[2021-04-17 06:26] LABS: Basophils # 0.1 K/mcL (0.0-0.2); Basophils % 0.6 %; Eosinophils # 0.8 K/mcL (0.0-0.6); Eosinophils % 6.7 %; Hematocrit 39.1 % (35.3-44.9); Hemoglobin 13.1 g/dL (11.5-15.4); Immature Granulocytes % 1.5 % (0-4); Lymphocytes # 2.5 K/mcL (0.6-4.6); Lymphocytes % 19.8 %; Mean Corpuscular HGB Conc 33.5 g/dL (31.6-35.5); Mean Corpuscular Volume 92.4 fL (83.0-100.0); Mean Platelet Volume 10.5 fL (9.4-12.4); Monocytes # 1.4 K/mcL (0.0-1.3); Monocytes % 10.7 %; Neutrophils # 7.6 K/mcL (1.6-8.9); Platelet Count 329 K/mcL (140-400); Red Blood Count 4.23 M/mcL (3.82-4.97); Red Cell Distribution Width 14.2 % (11.5-14.5); Segmented Neutrophils % 60.7 %; White Blood Count 12.6 K/mcL (4.3-11.1)
[2021-04-17 06:43] LABS: Magnesium 1.7 mg/dL (1.6-2.6); Potassium 3.4 mEq/L (3.5-5.1)
[2021-04-17] MEDS ORDERED: 0.9 % Sodium Chloride 1,000 ML IVC SCH (07:30)
[2021-04-17] MEDS: Insulin LISPRO 300 UNITS/3 ML VIAL SUBQ SCH ×4 (07:33→21:31)
[2021-04-17] MEDS: Aspirin 81 MG TAB.CHEW PO SCH (07:34)
[2021-04-17] MEDS: Nystatin SUSP 5 ML UD.LIQ BC SCH ×4 (07:34→22:05)
[2021-04-17] MEDS: Lactobacillus 1 EACH CAP.SPRINK PO SCH ×2 (07:34→22:05)
[2021-04-17] MEDS: Cholecalciferol (D-3) 1,000 UNIT (25MCG) TABLET PO SCH (07:34)
[2021-04-17] MEDS: atenoloL 50 MG TABLET PO SCH (07:34)
[2021-04-17] MEDS: amLODIPine 5 MG TABLET PO SCH (07:35)
[2021-04-17] MEDS: Haloperidol Lactate 5 MG/ML VIAL IVP PRN (22:05)
[2021-04-18] MEDS: *HR* Labetalol 20 MG/4 ML SYRINGE IVP PRN ×2 (05:08→23:35)
[2021-04-18] MEDS: *HR* Heparin 5,000 UNIT/ML VIAL SQ SCH ×2 (05:09→16:40)
[2021-04-18] MEDS: Cholecalciferol (D-3) 1,000 UNIT (25MCG) TABLET PO SCH (08:16)
[2021-04-18] MEDS: atenoloL 50 MG TABLET PO SCH (08:16)
[2021-04-18] MEDS: amLODIPine 5 MG TABLET PO SCH (08:16)
[2021-04-18] MEDS: Aspirin 81 MG TAB.CHEW PO SCH (08:16)
[2021-04-18] MEDS: Lactobacillus 1 EACH CAP.SPRINK PO SCH ×2 (08:16→21:07)
[2021-04-18] MEDS: Nystatin SUSP 5 ML UD.LIQ BC SCH ×4 (08:17→21:07)
[2021-04-18] MEDS: Insulin LISPRO 300 UNITS/3 ML VIAL SUBQ SCH ×4 (08:55→21:06)
[2021-04-18 10:31] LABS: BUN/Creatinine Ratio 13 (6-26); Blood Urea Nitrogen 13 mg/dL (8-23); Calcium 8.8 mg/dL (8.6-10.3); Carbon Dioxide 25 mEq/L (23-29); Chloride 104 mEq/L (98-107); Glucose 274 mg/dL (70-105); Osmolality,Calculated 290 (280-300); Potassium 3.4 mEq/L (3.5-5.1); Sodium 135 mEq/L (136-145); eGFR For African Americans > 60 (> 60); eGFR For Non-African Americans 54 (> 60)
[2021-04-18] MEDS ORDERED: Potassium Chloride Elixir 20 MEQ/15 ML UDC PO ONE (11:11)
[2021-04-18] MEDS: *HR* HYDROcodone/Acet 5/325 mg TABLET PO PRN (23:34)
[2021-04-19] MEDS: Haloperidol Lactate 5 MG/ML VIAL IVP PRN (02:46)
[2021-04-19] MEDS: *HR* Heparin 5,000 UNIT/ML VIAL SQ SCH (06:56)
[2021-04-19 07:23] VITALS: TEMP 98.2
[2021-04-19] MEDS: Aspirin 81 MG TAB.CHEW PO SCH (08:16)
[2021-04-19] MEDS: amLODIPine 5 MG TABLET PO SCH (08:16)
[2021-04-19] MEDS: atenoloL 50 MG TABLET PO SCH (08:17)
[2021-04-19] MEDS: Cholecalciferol (D-3) 1,000 UNIT (25MCG) TABLET PO SCH (08:17)
[2021-04-19] MEDS: Lactobacillus 1 EACH CAP.SPRINK PO SCH (08:17)
[2021-04-19] MEDS: Nystatin SUSP 5 ML UD.LIQ BC SCH (08:20)
[2021-04-19] MEDS: Insulin LISPRO 300 UNITS/3 ML VIAL SUBQ SCH (08:23)
[2021-04-19 10:38] LABS: Adenovirus Not Detected (Not Detect); Coronavirus 229E Not Detected (Not Detect); Coronavirus HKU1 Not Detected (Not Detect); Coronavirus NL63 Not Detected (Not Detect); Coronavirus OC43 Not Detected (Not Detect)
[2021-04-19 10:39] LABS: Bordetella Pertussis Not Detected (Not Detect); Chlamydophila pneumoniae Not Detected (Not Detect); Human Metapneumovirus Not Detected (Not Detect); Human Rhinovirus/Enterovirus Not Detected (Not Detect); Influenza A Subtype 2009 H1 Not Detected (Not Detect); Influenza B Not Detected (Not Detect); Mycoplasma pneumoniae Not Detected (Not Detect); Parainfluenza Virus 1 Not Detected (Not Detect); Parainfluenza Virus 2 Not Detected (Not Detect); Parainfluenza Virus 3 Not Detected (Not Detect); Parainfluenza Virus 4 Not Detected (Not Detect); Respiratory Syncytial Virus Not Detected (Not Detect); SARS-CoV-2 Not Detected (Not Detect)
[2021-04-19 11:25] VITALS: BP 159/75; PULSE 67; O2SAT 98
== END 2021-04-19 12:00 | DRG 37 ==
LOC: SAMDAY 06:12 → SUATTDRO 14:04 → 2NNU 14:04
PROVIDERS: ADMIT Surgery; ATTEND Internal Medicine

== ENCOUNTER 2021-09-21 01:17 | Inpatient (IN) ==
[2021-09-21] MEDS ORDERED: *HR* OxyCODONE Immed Rel 5 MG TABLET PO ONE ×2 (01:59→17:52)
[2021-09-21 03:12] LABS: Basophils # 0.1 K/mcL (0.0-0.2); Basophils % 0.5 %; Eosinophils # 0.2 K/mcL (0.0-0.6); Eosinophils % 1.9 %; Hematocrit 40.1 % (35.3-44.9); Hemoglobin 13.4 g/dL (11.5-15.4); Lymphocytes # 1.3 K/mcL (0.6-4.6); Lymphocytes % 10.6 %; Mean Corpuscular HGB Conc 33.4 g/dL (31.6-35.5); Mean Corpuscular Hemoglobin 29.6 pg (28.0-33.3); Mean Corpuscular Volume 88.5 fL (83.0-100.0); Mean Platelet Volume 10.9 fL (9.4-12.4); Monocytes % 8.2 %; Neutrophils # 9.7 K/mcL (1.6-8.9); Platelet Count 270 K/mcL (140-400); Red Blood Count 4.53 M/mcL (3.82-4.97); Red Cell Distribution Width 13.6 % (11.5-14.5); Segmented Neutrophils % 77.8 %; White Blood Count 12.5 K/mcL (4.3-11.1)
[2021-09-21 03:32] LABS: Potassium 3.9 mEq/L (3.5-5.1)
[2021-09-21] MEDS ORDERED: *HR* HYDROcodone/Acet 5/325 mg TABLET PO PRN ×2 (03:53→19:03)
[2021-09-21] MEDS ORDERED: Ondansetron ODT 4 MG TAB.RAPDIS SL PRN ×2 (03:53→19:03)
[2021-09-21] MEDS ORDERED: Naloxone 0.4 MG/ML INJ IVP PRN ×2 (03:53→19:03)
[2021-09-21] MEDS ORDERED: Melatonin 3 MG TABLET PO PRN ×2 (03:53→19:03)
[2021-09-21] MEDS ORDERED: Acetaminophen 325 MG TABLET PO PRN ×2 (03:53→19:03)
[2021-09-21] MEDS ORDERED: *HR* OxyCODONE Immed Rel 5 MG TABLET PO PRN (03:53)
[2021-09-21] MEDS ORDERED: *HR* HYDROmorphone (PF) 1 MG/ML SYRINGE IVP PRN ×2 (03:56→19:03)
[2021-09-21 08:17] LABS: Prothrombin Time 11.6 Seconds (9.4-12.1)
[2021-09-21 08:20] LABS: Activated Partial Thrombo Time 32.6 Seconds (26.0-36.0)
[2021-09-21] MEDS ORDERED: Insulin Human Regular 5 UNIT in 0.9 % Sodium Chloride 10 ML IV ONE (12:37)
[2021-09-21] MEDS ORDERED: Clindamycin 900 MG/50 ML 900 MG/50 ML IV.SOLN IVPB ONE ×2 (12:38→19:03)
[2021-09-21] MEDS ORDERED: Ringers Solution, Lactated 1,000 ML IVC SCH ×2 (12:45→19:03)
[2021-09-21] MEDS ORDERED: atenoloL 25 MG TABLET PO ONE (12:50)
[2021-09-21] MEDS ORDERED: Vancomycin 1,000 MG VIAL ONE (14:39)
[2021-09-21] MEDS ORDERED: *HR* FentaNYL (PF) 100 MCG/2 ML VIAL ONE (14:49)
[2021-09-21] MEDS ORDERED: *HR* Succinylcholine 200 MG/10 ML VIAL IVP ONE (15:00)
[2021-09-21] MEDS ORDERED: Ondansetron 4 MG/2 ML VIAL ONE ×2 (15:00→18:24)
[2021-09-21] MEDS ORDERED: Lidocaine -MPF 2% 5 ML VIAL ONE (15:00)
[2021-09-21] MEDS ORDERED: *HR* Rocuronium Bromide 50 MG/5 ML VIAL ONE (15:00)
[2021-09-21] MEDS ORDERED: Lidocaine HCL 4 ML Topical Solution (Laryng-O-Jet Kit Sterile Pak) TP ONE (15:00)
[2021-09-21] MEDS ORDERED: EPHEDrine 50 MG/ML VIAL ONE (15:15)
[2021-09-21] MEDS ORDERED: Ethanol\\Acetic Acid\\Na Ace\\Ben 1,000 ML IRRIG.SOLN IR ONE (16:04)
[2021-09-21] MEDS ORDERED: Ondansetron 4 MG/2 ML VIAL IVP ONE (18:21)
[2021-09-21] MEDS ORDERED: *HR* Metoprolol 5 MG/5 ML VIAL IVP ONE ×2 (18:22→18:25)
[2021-09-21] MEDS: *HR* OxyCODONE Immed Rel 5 MG TABLET PO PRN (22:52)
[2021-09-22] MEDS ORDERED: Clindamycin 900 MG/50 ML 900 MG/50 ML IV.SOLN IVPB SCH
[2021-09-22 04:56] LABS: Basophils % 0.2 %; Immature Granulocytes % 0.5 % (0-4); Lymphocytes # 0.8 K/mcL (0.6-4.6); Mean Corpuscular HGB Conc 31.8 g/dL (31.6-35.5); Mean Corpuscular Hemoglobin 29.1 pg (28.0-33.3); Mean Corpuscular Volume 91.6 fL (83.0-100.0); Mean Platelet Volume 11.5 fL (9.4-12.4); Monocytes # 1.4 K/mcL (0.0-1.3); Monocytes % 8.3 %; Neutrophils # 14.2 K/mcL (1.6-8.9); Platelet Count 277 K/mcL (140-400); Red Blood Count 3.71 M/mcL (3.82-4.97); Red Cell Distribution Width 14.1 % (11.5-14.5); White Blood Count 16.5 K/mcL (4.3-11.1)
[2021-09-22 05:06] LABS: Hemoglobin 10.8 g/dL (11.5-15.4)
[2021-09-22] MEDS: Clindamycin 900 MG/50 ML 900 MG/50 ML IV.SOLN IVPB SCH ×2 (05:07→12:23)
[2021-09-22 05:15] LABS: Calcium 8.9 mg/dL (8.6-10.3); Potassium 4.7 mEq/L (3.5-5.1)
[2021-09-22] MEDS ORDERED: Aspirin Enteric Coated 325 MG Tablet PO SCH ×2 (09:00)
[2021-09-22] MEDS ORDERED: *HR* OxyCODONE Immed Rel 5 MG TABLET PO PRN (11:48)
[2021-09-22] MEDS ORDERED: D5% in Water 1,000 ML IVC PRN (11:51)
[2021-09-22] MEDS ORDERED: Dextrose Gel 15 GM/37.5 ML TUBE PO PRN ×2 (11:51)
[2021-09-22] MEDS ORDERED: *HR* Dextrose 50 % in Water (Syg) 50 ML SYRINGE IVP PRN (11:51)
[2021-09-22] MEDS: Aspirin 325 MG TABLET PO SCH (12:23)
[2021-09-22] MEDS: Insulin LISPRO 300 UNITS/3 ML VIAL SUBQ SCH ×3 (13:59→21:43)
[2021-09-22] MEDS: Insulin DETEMIR 100 UNIT/ML X5UNITS SUBQ SCH (21:43)
[2021-09-22] MEDS: *HR* OxyCODONE Immed Rel 5 MG TABLET PO PRN (21:44)
[2021-09-23 05:52] LABS: Basophils % 0.2 %; Eosinophils # 0.1 K/mcL (0.0-0.6); Eosinophils % 0.8 %; Hemoglobin 9.6 g/dL (11.5-15.4); Immature Granulocytes % 0.6 % (0-4); Lymphocytes # 1.3 K/mcL (0.6-4.6); Lymphocytes % 9.5 %; Mean Corpuscular Hemoglobin 29.3 pg (28.0-33.3); Mean Corpuscular Volume 91.5 fL (83.0-100.0); Mean Platelet Volume 11.4 fL (9.4-12.4); Monocytes # 1.1 K/mcL (0.0-1.3); Monocytes % 8.5 %; Neutrophils # 10.7 K/mcL (1.6-8.9); Platelet Count 220 K/mcL (140-400); Red Blood Count 3.28 M/mcL (3.82-4.97); Red Cell Distribution Width 14.4 % (11.5-14.5); Segmented Neutrophils % 80.4 %; White Blood Count 13.2 K/mcL (4.3-11.1)
[2021-09-23 06:17] LABS: Calcium 8.7 mg/dL (8.6-10.3); Potassium 4.2 mEq/L (3.5-5.1)
[2021-09-23] MEDS ORDERED: 0.9 % Sodium Chloride 1,000 ML IVC ONE (07:33)
[2021-09-23] MEDS: Aspirin 325 MG TABLET PO SCH (08:15)
[2021-09-23] MEDS: Insulin LISPRO 300 UNITS/3 ML VIAL SUBQ SCH ×4 (08:15→22:07)
[2021-09-23] MEDS: Insulin DETEMIR 100 UNIT/ML X5UNITS SUBQ SCH (22:07)
[2021-09-24] MEDS: *HR* OxyCODONE Immed Rel 5 MG TABLET PO PRN ×2 (02:09→09:00)
[2021-09-24 05:48] LABS: Hematocrit 27.1 % (35.3-44.9); Hemoglobin 9.1 g/dL (11.5-15.4); Mean Corpuscular HGB Conc 33.6 g/dL (31.6-35.5); Mean Corpuscular Hemoglobin 30.6 pg (28.0-33.3); Mean Corpuscular Volume 91.2 fL (83.0-100.0); Mean Platelet Volume 11.4 fL (9.4-12.4); Platelet Count 216 K/mcL (140-400); Red Blood Count 2.97 M/mcL (3.82-4.97); Red Cell Distribution Width 14.3 % (11.5-14.5); White Blood Count 10.4 K/mcL (4.3-11.1)
[2021-09-24 06:07] LABS: Calcium 8.6 mg/dL (8.6-10.3); Potassium 4.4 mEq/L (3.5-5.1)
[2021-09-24 06:55] VITALS: O2SAT 93
[2021-09-24] MEDS: Aspirin 325 MG TABLET PO SCH (08:59)
[2021-09-24] MEDS ORDERED: atenoloL 50 MG TABLET PO SCH (09:00)
[2021-09-24] MEDS ORDERED: amLODIPine 5 MG TABLET PO SCH (09:00)
[2021-09-24] MEDS: Insulin LISPRO 300 UNITS/3 ML VIAL SUBQ SCH ×2 (09:01→13:16)
[2021-09-24 11:18] VITALS: BP 104/64; PULSE 86; TEMP 98.2
[2021-09-24] MEDS ORDERED: Sennosides/Docusate Sodium TABLET PO SCH (12:15)
[2021-09-24] MEDS ORDERED: polyethylene glycoL 3350 17 GM POWD.PACK PO SCH (12:15)
[2021-09-24 13:06] LABS: Adenovirus Not Detected (Not Detect); Bordetella Pertussis Not Detected (Not Detect); Chlamydophila pneumoniae Not Detected (Not Detect); Coronavirus 229E Not Detected (Not Detect); Coronavirus HKU1 Not Detected (Not Detect); Coronavirus NL63 Not Detected (Not Detect); Coronavirus OC43 Not Detected (Not Detect); Human Metapneumovirus Not Detected (Not Detect); Human Rhinovirus/Enterovirus Not Detected (Not Detect); Influenza A Subtype 2009 H1 Not Detected (Not Detect); Influenza B Not Detected (Not Detect); Mycoplasma pneumoniae Not Detected (Not Detect); Parainfluenza Virus 1 Not Detected (Not Detect); Parainfluenza Virus 2 Not Detected (Not Detect); Parainfluenza Virus 3 Not Detected (Not Detect); Parainfluenza Virus 4 Not Detected (Not Detect); Respiratory Syncytial Virus Not Detected (Not Detect); SARS-CoV-2 Not Detected (Not Detect)
== END 2021-09-24 15:15 | DRG 521 ==
LOC: EMEROOARM 01:17 → 4WAOSI 01:17 → SUATTDRO 03:49 → 4WAOSI 04:16
PROVIDERS: ADMIT Internal Medicine; ATTEND Internal Medicine

== ENCOUNTER 2021-09-24 16:25 | Inpatient (IN) ==
[2021-09-24 16:55] LABS: Hematocrit 29.6 % (35.3-44.9); Mean Corpuscular HGB Conc 33.8 g/dL (31.6-35.5); Mean Corpuscular Hemoglobin 30.4 pg (28.0-33.3); Mean Platelet Volume 10.9 fL (9.4-12.4); Platelet Count 300 K/mcL (140-400); Red Blood Count 3.29 M/mcL (3.82-4.97); Red Cell Distribution Width 14.1 % (11.5-14.5); White Blood Count 14.6 K/mcL (4.3-11.1)
[2021-09-24 17:02] LABS: INR 1.1; Prothrombin Time 12.1 Seconds (9.4-12.1)
[2021-09-24 17:04] LABS: Activated Partial Thrombo Time 23.6 Seconds (26.0-36.0)
[2021-09-24] MEDS ORDERED: Isovue-370 500 ML BOTTLE IVP ONE (17:07)
[2021-09-24] MEDS ORDERED: 0.9 % Sodium Chloride 1,000 ML IVC SCH ×2 (17:15→20:45)
[2021-09-24 17:16] LABS: Acetaminophen < 10 mcg/mL (10-20); BUN/Creatinine Ratio 27 (6-26); Blood Urea Nitrogen 32 mg/dL (8-23); Carbon Dioxide 23 mEq/L (23-29); Chloride 98 mEq/L (98-107); Ethanol < 10 mg/dL (Less than 10); Glucose 209 mg/dL (70-105); Osmolality,Calculated 283 (280-300); Potassium 4.6 mEq/L (3.5-5.1); Salicylate < 2.5 mg/dL (15.0-30.0); Sodium 130 mEq/L (136-145); Troponin I 0.37 ng/mL (< 0.04); eGFR For African Americans 53 (> 60); eGFR For Non-African Americans 44 (> 60)
[2021-09-24] MEDS ORDERED: *HR* Heparin 5,000 UNIT/ML VIAL IVP PRN ×2 (18:55)
[2021-09-24] MEDS ORDERED: *HR* Heparin 5,000 UNIT/ML VIAL IVP ONE (18:55)
[2021-09-24] MEDS ORDERED: Heparin 25,000UNIT/250ML 1/2NS 25,000 UNIT/250 ML IV.SOLN IVC SCH (19:00)
[2021-09-24] MEDS ORDERED: Naloxone 0.4 MG/ML INJ IVP PRN (19:56)
[2021-09-24] MEDS ORDERED: *HR* Dextrose 50 % in Water (Syg) 50 ML SYRINGE IVP PRN (20:06)
[2021-09-24] MEDS ORDERED: D5% in Water 1,000 ML IVC PRN (20:06)
[2021-09-24] MEDS ORDERED: Dextrose Gel 15 GM/37.5 ML TUBE PO PRN ×2 (20:06)
[2021-09-24] MEDS ORDERED: Gadolinium Contrast Agent (WT Based) IV PRN (20:24)
[2021-09-24] MEDS ORDERED: Perflutren Lipid Microsphere 1.3 ML in 0.9 % Sodium Chloride 8.7 ML IVP PRN (20:25)
[2021-09-24 20:37] LABS: Bilirubin,Urine Negative (Negative); Blood,Urine Small (Negative); Clarity,Urine Clear (Clear); Color,Urine Light-Yellow (Yellow); Glucose,Urine (UA) 70 mg/dL (Normal); Ketones,Urine Negative (Negative); Leukocyte Esterase,Urine Negative (Negative); Nitrite,Urine Negative (Negative); PH,Urine 5.5 pH Units (5.0-8.0); Protein,Urine 30 mg/dL (Neg-Trace); RBC,Urine 0-3 per hpf (0-3); Squamous Epithelial Cell,Urine Few per hpf (None-Few); Urobilinogen,Urine Normal (Normal); WBC,Urine 0-3 per hpf (0-3)
[2021-09-24 20:46] LABS: Amphetamine Screen,Urine Negative ng/mL (Cutoff=1000); Barbiturate Screen,Urine Negative ng/mL (Cutoff=200); Benzodiazepines Screen,Urine Negative ng/mL (Cutoff=200); Cannabinoid Screen,Urine Negative ng/mL (Cutoff = 50); Cocaine Screen,Urine Negative ng/mL (Cutoff= 300); Opiate Screen,Urine Negative ng/mL (Cutoff=300); Phencyclidine Screen,Urine Negative ng/mL (Cutoff=25)
[2021-09-24] MEDS: *HR* OxyCODONE Immed Rel 5 MG TABLET PO PRN (21:50)
[2021-09-24] MEDS: Melatonin 3 MG TABLET PO PRN (21:51)
[2021-09-24] MEDS: Insulin LISPRO 300 UNITS/3 ML VIAL SUBQ SCH (21:55)
[2021-09-24] MEDS: Insulin DETEMIR 100 UNIT/ML X5UNITS SUBQ SCH (21:55)
[2021-09-24] MEDS: Heparin 25,000 UNIT/250 ML 25,000 UNIT/250 ML IV.SOLN IVC SCH (21:56)
[2021-09-24] MEDS ORDERED: GADOBUTROL 30 MMOL/30 ML VIAL IVP ONE (22:30)
[2021-09-25 05:10] LABS: Basophils # 0.1 K/mcL (0.0-0.2); Basophils % 0.4 %; Eosinophils # 0.4 K/mcL (0.0-0.6); Eosinophils % 3.2 %; Hematocrit 27.5 % (35.3-44.9); Hemoglobin 9.2 g/dL (11.5-15.4); Immature Granulocytes % 0.7 % (0-4); Lymphocytes # 1.5 K/mcL (0.6-4.6); Lymphocytes % 11.7 %; Mean Corpuscular HGB Conc 33.5 g/dL (31.6-35.5); Mean Corpuscular Hemoglobin 30.5 pg (28.0-33.3); Mean Corpuscular Volume 91.1 fL (83.0-100.0); Mean Platelet Volume 11.2 fL (9.4-12.4); Monocytes # 1.4 K/mcL (0.0-1.3); Monocytes % 10.7 %; Neutrophils # 9.6 K/mcL (1.6-8.9); Platelet Count 311 K/mcL (140-400); Red Blood Count 3.02 M/mcL (3.82-4.97); Red Cell Distribution Width 14.1 % (11.5-14.5); Segmented Neutrophils % 73.3 %; White Blood Count 13.1 K/mcL (4.3-11.1)
[2021-09-25 05:28] LABS: Albumin 3.2 g/dL (3.5-5.7); Albumin/Globulin Ratio 1.2 (1.1-2.2); Bilirubin,Total 0.9 mg/dL (0.3-1.0); Calcium 8.7 mg/dL (8.6-10.3); Globulin 2.7 g/dL (2.4-3.5); Magnesium 1.9 mg/dL (1.6-2.6); Total Protein 5.9 g/dL (6.4-8.9)
[2021-09-25] MEDS: Insulin LISPRO 300 UNITS/3 ML VIAL SUBQ SCH ×4 (10:48→21:08)
[2021-09-25] MEDS: *HR* OxyCODONE Immed Rel 5 MG TABLET PO PRN (12:02)
[2021-09-25] MEDS: amLODIPine 5 MG TABLET PO SCH (12:02)
[2021-09-25] MEDS: Insulin DETEMIR 100 UNIT/ML X5UNITS SUBQ SCH (21:08)
[2021-09-26] MEDS ORDERED: Acetaminophen IV 1,000 MG/100 ML BAG IVPB ONE (03:13)
[2021-09-26] MEDS: Heparin 25,000 UNIT/250 ML 25,000 UNIT/250 ML IV.SOLN IVC SCH (04:40)
[2021-09-26 10:24] LABS: Basophils % 0.4 %; Eosinophils # 0.5 K/mcL (0.0-0.6); Eosinophils % 4.6 %; Hematocrit 26.2 % (35.3-44.9); Hemoglobin 8.5 g/dL (11.5-15.4); Immature Granulocytes % 0.8 % (0-4); Lymphocytes # 1.9 K/mcL (0.6-4.6); Lymphocytes % 19.3 %; Mean Corpuscular HGB Conc 32.4 g/dL (31.6-35.5); Mean Corpuscular Hemoglobin 29.5 pg (28.0-33.3); Mean Platelet Volume 10.7 fL (9.4-12.4); Monocytes # 1.1 K/mcL (0.0-1.3); Monocytes % 11.6 %; Neutrophils # 6.1 K/mcL (1.6-8.9); Platelet Count 305 K/mcL (140-400); Red Blood Count 2.88 M/mcL (3.82-4.97); Red Cell Distribution Width 13.8 % (11.5-14.5); Segmented Neutrophils % 63.3 %; White Blood Count 9.7 K/mcL (4.3-11.1)
[2021-09-26 10:47] LABS: Albumin/Globulin Ratio 1.1 (1.1-2.2); Bilirubin,Total 0.9 mg/dL (0.3-1.0); Calcium 8.4 mg/dL (8.6-10.3); Globulin 2.7 g/dL (2.4-3.5); Total Protein 5.7 g/dL (6.4-8.9)
[2021-09-26] MEDS: Insulin LISPRO 300 UNITS/3 ML VIAL SUBQ SCH ×4 (12:05→20:29)
[2021-09-26] MEDS: amLODIPine 5 MG TABLET PO SCH (12:12)
[2021-09-26] MEDS: Insulin DETEMIR 100 UNIT/ML X5UNITS SUBQ SCH (22:54)
[2021-09-27 02:42] LABS: Basophils # 0.1 K/mcL (0.0-0.2); Basophils % 0.6 %; Eosinophils # 0.4 K/mcL (0.0-0.6); Hematocrit 25.3 % (35.3-44.9); Hemoglobin 8.1 g/dL (11.5-15.4); Immature Granulocytes % 1.1 % (0-4); Lymphocytes # 2.3 K/mcL (0.6-4.6); Lymphocytes % 20.7 %; Mean Corpuscular Hemoglobin 29.5 pg (28.0-33.3); Mean Platelet Volume 10.9 fL (9.4-12.4); Monocytes # 1.3 K/mcL (0.0-1.3); Neutrophils # 6.7 K/mcL (1.6-8.9); Platelet Count 331 K/mcL (140-400); Red Blood Count 2.75 M/mcL (3.82-4.97); Red Cell Distribution Width 13.8 % (11.5-14.5); Segmented Neutrophils % 61.6 %; White Blood Count 10.9 K/mcL (4.3-11.1)
[2021-09-27 02:49] LABS: Albumin 2.9 g/dL (3.5-5.7); Albumin/Globulin Ratio 1.2 (1.1-2.2); Bilirubin,Total 0.8 mg/dL (0.3-1.0); Calcium 8.3 mg/dL (8.6-10.3); Globulin 2.5 g/dL (2.4-3.5); Potassium 3.8 mEq/L (3.5-5.1); Total Protein 5.4 g/dL (6.4-8.9)
[2021-09-27] MEDS: amLODIPine 5 MG TABLET PO SCH (08:21)
[2021-09-27] MEDS: *HR* HYDROcodone/Acet 5/325 mg TABLET PO PRN ×2 (08:21→16:32)
[2021-09-27] MEDS: Insulin LISPRO 300 UNITS/3 ML VIAL SUBQ SCH ×4 (08:22→20:22)
[2021-09-27] MEDS ORDERED: 0.9 % Sodium Chloride 1,000 ML IVC SCH (09:15)
[2021-09-27] MEDS: Aspirin 325 MG TABLET PO SCH (09:46)
[2021-09-27 12:10] LABS: Hematocrit 26.4 % (35.3-44.9); Hemoglobin 8.6 g/dL (11.5-15.4)
[2021-09-27] MEDS: Insulin DETEMIR 100 UNIT/ML X5UNITS SUBQ SCH (20:21)
[2021-09-28] MEDS: *HR* HYDROcodone/Acet 5/325 mg TABLET PO PRN ×4 (00:07→23:38)
[2021-09-28] MEDS: Melatonin 3 MG TABLET PO PRN (00:08)
[2021-09-28 01:28] LABS: Basophils # 0.1 K/mcL (0.0-0.2); Basophils % 0.6 %; Eosinophils # 0.5 K/mcL (0.0-0.6); Eosinophils % 4.4 %; Hematocrit 25.2 % (35.3-44.9); Hemoglobin 7.9 g/dL (11.5-15.4); Immature Granulocytes % 1.3 % (0-4); Lymphocytes # 1.8 K/mcL (0.6-4.6); Lymphocytes % 16.7 %; Mean Corpuscular HGB Conc 31.3 g/dL (31.6-35.5); Mean Corpuscular Volume 92.6 fL (83.0-100.0); Mean Platelet Volume 10.5 fL (9.4-12.4); Monocytes # 1.3 K/mcL (0.0-1.3); Monocytes % 11.9 %; Neutrophils # 7.1 K/mcL (1.6-8.9); Platelet Count 324 K/mcL (140-400); Red Blood Count 2.72 M/mcL (3.82-4.97); Red Cell Distribution Width 14.1 % (11.5-14.5); Segmented Neutrophils % 65.1 %; White Blood Count 10.8 K/mcL (4.3-11.1)
[2021-09-28 02:24] LABS: Albumin 2.8 g/dL (3.5-5.7); Albumin/Globulin Ratio 1.2 (1.1-2.2); Bilirubin,Total 0.7 mg/dL (0.3-1.0); Globulin 2.4 g/dL (2.4-3.5); Potassium 3.9 mEq/L (3.5-5.1); Total Protein 5.2 g/dL (6.4-8.9)
[2021-09-28] MEDS: amLODIPine 5 MG TABLET PO SCH (09:39)
[2021-09-28] MEDS: Aspirin 325 MG TABLET PO SCH (09:39)
[2021-09-28] MEDS: Insulin LISPRO 300 UNITS/3 ML VIAL SUBQ SCH ×4 (10:08→20:37)
[2021-09-28 11:51] LABS: Hemoglobin 8.5 g/dL (11.5-15.4)
[2021-09-28] MEDS: Insulin DETEMIR 100 UNIT/ML X5UNITS SUBQ SCH (19:58)
[2021-09-29] MEDS: *HR* HYDROcodone/Acet 5/325 mg TABLET PO PRN ×2 (05:47→18:30)
[2021-09-29] MEDS: Insulin LISPRO 300 UNITS/3 ML VIAL SUBQ SCH ×4 (09:16→21:59)
[2021-09-29] MEDS: Aspirin 325 MG TABLET PO SCH (09:23)
[2021-09-29] MEDS: amLODIPine 5 MG TABLET PO SCH (09:23)
[2021-09-29] MEDS: Insulin DETEMIR 100 UNIT/ML X5UNITS SUBQ SCH (22:00)
[2021-09-30] MEDS: Insulin LISPRO 300 UNITS/3 ML VIAL SUBQ SCH ×3 (09:56→15:47)
[2021-09-30] MEDS: amLODIPine 5 MG TABLET PO SCH (09:57)
[2021-09-30] MEDS: *HR* HYDROcodone/Acet 5/325 mg TABLET PO PRN ×2 (09:57→15:49)
[2021-09-30] MEDS: Aspirin 325 MG TABLET PO SCH (09:58)
[2021-09-30 10:58] VITALS: TEMP 98.1
[2021-09-30] MEDS ORDERED: Bisacodyl 10 MG RECTAL SUPPOSITORY RC PRN (12:53)
[2021-09-30] MEDS ORDERED: polyethylene glycoL 3350 17 GM POWD.PACK PO SCH (13:00)
[2021-09-30 14:56] VITALS: BP 127/62; PULSE 79; O2SAT 97
[2021-09-30 17:01] LABS: Adenovirus Not Detected (Not Detect); Bordetella Pertussis Not Detected (Not Detect); Chlamydophila pneumoniae Not Detected (Not Detect); Coronavirus 229E Not Detected (Not Detect); Coronavirus HKU1 Not Detected (Not Detect); Coronavirus NL63 Not Detected (Not Detect); Coronavirus OC43 Not Detected (Not Detect); Human Metapneumovirus Not Detected (Not Detect); Human Rhinovirus/Enterovirus Not Detected (Not Detect); Influenza A Subtype 2009 H1 Not Detected (Not Detect); Influenza B Not Detected (Not Detect); Mycoplasma pneumoniae Not Detected (Not Detect); Parainfluenza Virus 1 Not Detected (Not Detect); Parainfluenza Virus 2 Not Detected (Not Detect); Parainfluenza Virus 3 Not Detected (Not Detect); Parainfluenza Virus 4 Not Detected (Not Detect); Respiratory Syncytial Virus Not Detected (Not Detect); SARS-CoV-2 Not Detected (Not Detect)
== END 2021-09-30 18:12 | DRG 70 ==
LOC: 3BNU 16:25 → EMEROOARM 16:25 → 3BNU 20:02 → SUATTDRO 09-26 16:37
PROVIDERS: ADMIT Pharmacist; ATTEND Registered Nurse